=== PATIENT | male | born 1935 | race Caucasian/White ===

== ENCOUNTER → 2016-05-28 | Outpatient (CLI) | payer OTHER, BC ==
[2016-05-28 13:29] LABS: HEMATOCRIT 46.9 % (42-52); MEAN CELL VOLUME 90.7 fL (80-100); MEAN CORPUSCULAR HEMOGLOBIN 31.3 pg (25-34); MEAN CORPUSCULAR HGB CONC 34.5 g/dl (32-36); MEAN PLATELET VOLUME 10.4 fL (7.4-10.4); PLATELET COUNT 218 K/uL (130-400); RED BLOOD COUNT 5.17 M/uL (4.7-6.1)
[2016-05-28 13:54] LABS: BLOOD UREA NITROGEN 18 mg/dl (7-18); BUN/CREATININE RATIO 16.3 (10-20); CALCIUM 9.3 mg/dl (8.5-10.1); CARBON DIOXIDE 25 mmol/L (21-32); CHLORIDE 105 mmol/L (98-107); GLUCOSE 121 mg/dl (70-99); POTASSIUM 4.1 mmol/L (3.5-5.1); SODIUM 141 mmol/L (136-145)
[2016-05-28 14:06] LABS: ALB/GLOB RATIO 1.2 (0.9-2); ALKALINE PHOSPHATASE 48 U/L (45-117); ALT/SGPT 37 U/L (12-78); AST/SGOT 22 U/L (15-37); CHOLESTEROL 184 mg/dl (0-200); CHOLESTEROL/HDL RATIO 3.3; HDL CHOLESTEROL 55 mg/dl; LDL CHOLESTEROL CALCULATED 109 mg/dl; TRIGLYCERIDES 100 mg/dl (0-150); VERY LOW DENSITY LIPOPROT CALC 20 mg/dl
[2016-05-28 14:22] LABS: ESTIMATED AVERAGE GLUCOSE 140 mg/dl; HA1C FLAG Normal (Normal)
== END | disposition home or self-care (01) ==
LOC: C.LABBC 09:27
PROVIDERS: ATTEND Family Medicine
DX: E11.9 Type 2 diabetes mellitus without complications (principal); I10 Essential (primary) hypertension

== ENCOUNTER → 2016-11-25 | Outpatient (CLI) | payer OTHER, BC ==
[2016-11-25 10:51] LABS: BASO % 0.8 %; BASO ABS # 0.07 K/uL (0-0.2); COMPLETE YES; EOS % 5.9 %; IG% 0.4 %; MEAN CELL VOLUME 90.5 fL (80-100); MEAN CORPUSCULAR HGB CONC 34.2 g/dl (32-36); MEAN PLATELET VOLUME 10.3 fL (7.4-10.4); MONO % 9.6 %; NEUT % 45.3 %; PLATELET COUNT 212 K/uL (130-400); RED BLOOD COUNT 4.97 M/uL (4.7-6.1); WHITE BLOOD COUNT 8.43 K/uL (4.8-10.8)
[2016-11-25 11:16] LABS: ALB/GLOB RATIO 1.1 (0.9-2); ALKALINE PHOSPHATASE 44 U/L (45-117); ALT/SGPT 43 U/L (12-78); AST/SGOT 26 U/L (15-37); BLOOD UREA NITROGEN 16 mg/dl (7-18); BUN/CREATININE RATIO 17.3 (10-20); CALCIUM 8.7 mg/dl (8.5-10.1); CARBON DIOXIDE 27 mmol/L (21-32); CHLORIDE 107 mmol/L (98-107); CHOLESTEROL 161 mg/dl (0-200); CHOLESTEROL/HDL RATIO 3.2; CREATININE 0.92 mg/dl (0.60-1.40); GLUCOSE 124 mg/dl (70-99); HDL CHOLESTEROL 50 mg/dl; POTASSIUM 4.1 mmol/L (3.5-5.1); SODIUM 140 mmol/L (136-145)
[2016-11-25 11:21] LABS: LDL CHOLESTEROL CALCULATED 92 mg/dl; PHOSPHORUS 2.1 mg/dl (2.5-4.9); TRIGLYCERIDES 96 mg/dl (0-150); URIC ACID 5.1 mg/dl (2.6-7.2); VERY LOW DENSITY LIPOPROT CALC 19 mg/dl
[2016-11-25 11:52] LABS: ESTIMATED AVERAGE GLUCOSE 137 mg/dl; HA1C FLAG Normal (Normal)
[2016-11-26 12:31] LABS: C-REACTIVE PROT HIGHSEN 3.2 MG/L
--- NOTE | 2016-12-03 09:17 | CODING QUERY MEDICAL NECESSITY ---
CQSUPPORTING DIAGNOSIS NEEDED A supporting diagnosis is required for the test/procedure performed on this patient in order for us to be reimbursed by the patient's insurance. Please provide a supporting diagnosis for the following test/procedure listed below next to the test name along with your signature. *If there is no additional diagnosis for this patient that would support the following test/procedure please document that below next to the test/procedure. Test(s)/Procedure(s) that require a supporting diagnosis: DOS 11/25/16 C-REACTIVE PROTEIN HIGH SENSITIVITY TEST THYROID TEST Provider Signature: Date: Thank you Breana Nunez Health Information Management Once completed, please kindly fax back to [phone] For questions please call [phone]
== END | disposition home or self-care (01) ==
LOC: C.LABBC 08:24
PROVIDERS: ATTEND Family Medicine
DX: R73.09 Other abnormal glucose (principal); E55.9 Vitamin D deficiency, unspecified; D51.9 Vitamin B12 deficiency anemia, unspecified; R53.83 Other fatigue

== ENCOUNTER → 2017-01-07 | Outpatient (CLI) | payer OTHER, BC ==
[2017-01-07 10:59] LABS: HEMATOCRIT 46.8 % (42-52); MEAN CELL VOLUME 90.9 fL (80-100); MEAN CORPUSCULAR HEMOGLOBIN 32.2 pg (25-34); MEAN CORPUSCULAR HGB CONC 35.5 g/dl (32-36); MEAN PLATELET VOLUME 10.7 fL (7.4-10.4); PLATELET COUNT 237 K/uL (130-400); RED BLOOD COUNT 5.15 M/uL (4.7-6.1); WHITE BLOOD COUNT 11.02 K/uL (4.8-10.8)
[2017-01-07 11:33] LABS: BLOOD UREA NITROGEN 20 mg/dl (7-18); BUN/CREATININE RATIO 19.8 (10-20); CALCIUM 9.2 mg/dl (8.5-10.1); CARBON DIOXIDE 27 mmol/L (21-32); CHLORIDE 105 mmol/L (98-107); GLUCOSE 137 mg/dl (70-99); POTASSIUM 4.2 mmol/L (3.5-5.1); SODIUM 139 mmol/L (136-145)
== END | disposition home or self-care (01) ==
LOC: C.LABBC 07:44
PROVIDERS: ATTEND Urology
DX: R97.20 Elevated prostate specific antigen [PSA] (principal); N52.01 Erectile dysfunction due to arterial insufficiency

== ENCOUNTER → 2017-08-03 | Outpatient (CLI) | payer OTHER, BC ==
[2017-08-03 10:42] LABS: BASO % 0.9 %; BASO ABS # 0.08 K/uL (0-0.2); EOS % 4.9 %; EOS ABS # 0.46 K/uL (0-0.5); HEMOGLOBIN 15.6 g/dL (14.0-18.0); IG# 0.07 K/uL (0.00-0.02); LYMPH % 31.4 %; LYMPH ABS # 2.93 K/uL (1.2-3.4); MEAN CELL VOLUME 89.8 fL (80-100); MEAN CORPUSCULAR HEMOGLOBIN 31.8 pg (25-34); MEAN CORPUSCULAR HGB CONC 35.5 g/dl (32-36); MEAN PLATELET VOLUME 10.2 fL (7.4-10.4); MONO % 9.2 %; MONO ABS # 0.86 K/uL (0.11-0.59); NEUT % 52.9 %; NEUT ABS # 4.94 K/uL (1.4-6.5); PLATELET COUNT 231 K/uL (130-400); RED CELL DISTRIBUTION WIDTH CV 14.1 % (11.5-14.5); RED CELL DISTRIBUTION WIDTH SD 46.1 fL (36.4-46.3); WHITE BLOOD COUNT 9.34 K/uL (4.8-10.8)
[2017-08-03 11:41] LABS: HEMOGLOBIN A1C 6.6 % (4.5-5.6)
[2017-08-03 14:02] LABS: ALBUMIN 3.8 gm/dl (3.4-5.0); ALT/SGPT 36 U/L (12-78); AST/SGOT 26 U/L (15-37); BLOOD UREA NITROGEN 20 mg/dl (7-18); CALCIUM 9.1 mg/dl (8.5-10.1); CARBON DIOXIDE 25 mmol/L (21-32); CHOLESTEROL 157 mg/dl (0-200); GLUCOSE 126 mg/dl (70-99); POTASSIUM 4.4 mmol/L (3.5-5.1); SODIUM 135 mmol/L (136-145); URIC ACID 5.2 mg/dl (2.6-7.2)
[2017-08-03 14:11] LABS: ALKALINE PHOSPHATASE 48 U/L (45-117); LDL CHOLESTEROL CALCULATED 93 mg/dl; TOTAL PROTEIN 7.8 gm/dl (6.4-8.2); TRANSFERRIN 217 mg/dl (200-360)
== END | disposition home or self-care (01) ==
LOC: C.LABBC 09:06
PROVIDERS: ATTEND Family Medicine
DX: R73.09 Other abnormal glucose (principal); E55.9 Vitamin D deficiency, unspecified; D51.9 Vitamin B12 deficiency anemia, unspecified; E78.9 Disorder of lipoprotein metabolism, unspecified; R53.83 Other fatigue

== ENCOUNTER 2022-03-03 08:38 | Inpatient (IN) ==
[2022-03-03] MEDS ORDERED: ONDANSETRON INJ 2 MG/ML 2 ML VIAL IV STA ×2 (09:08→14:40)
[2022-03-03] MEDS ORDERED: ACETAMINOPHEN 1,000 MG/100 ML VIAL IV STA (09:08)
[2022-03-03] MEDS ORDERED: FAMOTIDINE 20MG IV PUSH 20 MG/5 ML SYR IV STA (09:08)
--- NOTE | 2022-03-03 09:08 | Emergency Department Note ---
Impression & Plan Precordial chest pain, Epigastric abdominal pain, Hiatal hernia, Gastric outlet obstruction ED Provider Note NAME: SCOTT TAVAREZ AGE: 86 SEX: M : 1935 ARRIVES VIA: Walk-In INFORMANT: [Patient] ED PROVIDER(S): [Nate Glover MD] CHIEF COMPLAINT: Chest pain HISTORY OF PRESENT ILLNESS: The patient is an 86-year-old male who presents with chest, epigastric abdominal and left scapular discomfort that began around 7 PM last night after eating a bowl of cereal. The pain was a 10/10 but now is a 5. No nausea or vomiting. He felt a little bit short of breath when he was getting dressed this morning. The pain has been present now for 14 hours. The patient had similar pain 2 days ago after eating lunch but it resolved spontaneously. The patient has no history of heart disease. He still has his gallbladder but has never been told he has gallstones. There has been no fever, no chills. No respiratory complaints. REVIEW OF SYSTEMS: See HPI for pertinent positives and negatives. A total of ten systems were reviewed and were otherwise negative. PMHx/PSHx: See Below SOCIAL HISTORY: See Below. PHYSICAL EXAM: GENERAL: Patient is in no acute distress. HEENT: No acute trauma, normocephalic atraumatic, mucous membranes moist, no nasal congestion, no scleral icterus. NECK: No stridor, no adenopathy, no meningismus, trachea is midline. LUNGS: Clear to auscultation bilaterally, no wheeze, no rhonchi, breath sounds equal. Chest: Nontender chest wall. HEART: No obvious murmurs, rhythm seems regular with an occasional extra beat. Normal rate. ABDOMEN: Soft, mildly tender in the epigastrium and right upper quadrant, no peritonitis. EXTREMITIES: No cyanosis or edema, full range of motion of all the joints without pain or difficulty, no signs for acute trauma. NEUROLOGIC: Oriented x 3, no acute motor or sensory deficits, no focal weakness. SKIN: No rash, no jaundice, no diaphoresis. DIFFERENTIAL DIAGNOSIS: Cardiac ischemia, aortic dissection, pulmonary embolism, pneumothorax, pneumonia, pericarditis, myocarditis, esophageal rupture, GERD, cholecystitis, pancreatitis, musculoskeletal, as well as other pathologies. EMERGENCY DEPARTMENT COURSE/PROCEDURES: ECG: Indication was chest pain. The ECG shows a sinus rhythm with PACs. The rate is 89. There is a right bundle branch block. There is no ST elevation. The QTc is 491. Continuous Cardiac Monitoring: An order was placed for continuous cardiac monitoring. The monitor shows a rate of 99 with sinus rhythm with PACs. Observation Note: The patient has a family history of prostate cancer. Patient was first seen at 0900 and observation began at 0900 and was necessary in order to rule out cardiac ischemia. Upon reevaluation, around 4 hours of observation revealed that the patient should be admitted for further work-up and testing. Admitted 03/03/2022, 1305. MEDICAL DECISION MAKING: There is a mild leukocytosis, this could be consistent with infection or just his pain. There is a normal hemoglobin and platelet count. No coagulopathy. No renal failure. No significant electrolyte abnormality in need of emergent correction. ECG shows a sinus rhythm with PACs. There was a right bundle branch block. No ST elevation. Cardiac enzyme testing x2 does not suggest acute cardiac injury. No evidence for pancreatitis. COVID test was negative. Chest x-ray does not show pneumonia or mediastinal widening. A hiatal hernia was seen. Abdominal and pelvis CT shows esophagitis with a hiatal hernia and a potential gastric outlet obstruction. Gallstones were seen. Gallbladder ultrasound shows gallstones, no acute cholecystitis or biliary obstruction. The patient received IV Tylenol, IV ceftriaxone, IV Pepcid and IV Zofran. He seems comfortable. I did speak with GI, Dr. Juarez. The patient requires hospitalization and an e ventual endoscopy. I did speak with the patient and case management, the on-call hospitalist was co nsulted. I do think the findings around the hiatal hernia and esophagus explain his presentation. Past Med/Surg History Medical History History of kidney stones Surgical History (Updated 03/03/22 @ 13:12 by Funmilayo Rodriguez PA-C) History of appendectomy Hx of tonsillectomy Family History Father Prostate cancer Denies family history of Colorectal cancer Social History Smoking Status: Never smoker Feels Safe at Home: Yes Allergies Allergies Allergy/AdvReac Type Severity Reaction Status Date / Time [id number] Allergy Unknown Uncoded 05/18/05 22:42 Home Meds Home Medications Medication Instructions Recorded Confirmed Fish Oil 2,000 Mg 2,000 mg PO BID 03/03/22 03/03/22 ascorbic acid (vitamin C) 1,000 mg 1 g PO DAILY 03/03/22 03/03/22 tablet (Vitamin C) aspirin 81 mg tablet,delayed 81 mg PO DAILY 03/03/22 03/03/22 release cholecalciferol (vitamin D3) 25 0 mcg PO DAILY 03/03/22 03/03/22 mcg (1,000 unit) tablet (Vitamin D3) vitamin B complex 1 tab PO DAILY 03/03/22 03/03/22 zinc 50 mg capsule 50 mg PO DAILY 03/03/22 03/03/22 Results & Data (ED) Vital Signs Vital Signs - 24 hr 03/03/22 08:41 03/03/22 08:55 03/03/22 12:38 Temperature 36.9 C Temperature Source Temporal Artery Scan Pulse Rate 99 H Pulse Rate [Finger] 81 Respiratory Rate 20 18 Respiratory Effort / Characteristics Non-Labored Spontaneous Respiratory Depth Normal Respiratory Pattern Regular Blood Pressure 134/85 Blood Pressure [Right Arm] 152/111 H Blood Pressure Mean 101 Blood Pressure Mean [Right Arm] 124 Blood Pressure Position Sitting Blood Pressure Position [Right Arm] Semi-fowlers Pulse Oximetry 96 93 94 Oxygen Delivery Method Room Air Room Air Room Air Sepsis Recent Fever Within 48 Hours No Sepsis New/Unexplained Change in Mental Status N/A Sepsis Action Taken by Nursing No Action Required 03/03/22 14:00 Temperature Temperature Source Pulse Rate Pulse Rate [Finger] 81 Respiratory Rate 16 Respiratory Effort / Characteristics Respiratory Depth Respiratory Pattern Blood Pressure Blood Pressure [Right Arm] 156/94 H Blood Pressure Mean Blood Pressure Mean [Right Arm] 114 Blood Pressure Position Blood Pressure Position [Right Arm] Pulse Oximetry 93 Oxygen Delivery Method Room Air Sepsis Recent Fever Within 48 Hours Sepsis New/Unexplained Change in Mental Status Sepsis Action Taken by Long Term Medications Current Medication List: was personally reviewed by me Laboratory Data Attestation: I reviewed the patient's lab results. Result diagrams: 03/03/22 09:10 03/03/22 09:10 Lab Results 03/03/22 03/03/22 03/03/22 Range/Units 09:10 09:10 09:10 WBC 11.76 H (4.8-10.8) K/ul RBC 4.78 (4.63-6.08) M/uL Hgb 14.8 (14.0-18.0) g/dl Hct 43.5 (40.1-51.0) % MCV 91.0 (80.0-100.0) fL MCH 31.0 (25.0-34.0) pg MCHC 34.0 (32.0-36.0) g/dL RDW Std Deviation 47.8 H (36.4-46.3) fL RDW Coeff of Hunter 14.2 (11.5-14.5) % Plt Count 264 (130-400) K/uL MPV 9.8 (9.4-12.4) fL Immature Gran % (Auto) 0.4 % Neut % (Auto) 70.2 % Lymph % (Auto) 19.1 % Crockett % (Auto) 7.7 % Eos % (Auto) 2.0 % Baso % (Auto) 0.6 % Neut # (Auto) 8.26 H (1.4-6.5) K/uL Lymph # (Auto) 2.25 (1.2-3.4) K/uL Crockett # (Auto) 0.90 H (0.24-0.82) K/uL Eos # (Auto) 0.23 (0-0.50) K/uL Baso # (Auto) 0.07 (0-0.2) K/uL Immature Gran # (Auto) 0.05 H (0.00-0.02) K/uL PT 10.9 (9.0-12.0) Seconds INR 1.0 (0.9-1.1) APTT 25.7 (21.0-31.0) Seconds PTT Ratio 0.9 Sodium 139 (136-145) mmol/L Potassium 3.8 (3.5-5.1) mmol/L Chloride 104 (98-107) mmol/L Carbon Dioxide 25 (21-32) mmol/L Anion Gap 10 (3-11) BUN 20 (6-23) mg/dl Creatinine 0.97 (0.6-1.4) mg/dl Est Cr Clr Drug Dosing 61.5 ml/min Est GFR ( Amer) 82.7 ml/min Est GFR (Non-Af Amer) 71.4 ml/min BUN/Creatinine Ratio 20.6 H (10-20) Glucose 150 H (70-99(Fasting)) mg/dl Calcium 9.5 (8.5-10.1) mg/dl Magnesium 2.0 (1.7-2.4) mg/dl Total Bilirubin 0.9 (0.2-1.0) mg/dl AST 16 (13-39) U/L ALT 13 (7-52) U/L Alkaline Phosphatase 57 (34-104) U/L Troponin I High Sens 20.5 H (0-20) pg/ml Total Protein 7.6 (6.0-8.3) gm/dl Albumin 4.0 (3.4-5.0) gm/dl Globulin 3.6 (2.5-4.0) gm/dl Albumin/Globulin Ratio 1.1 (0.9-2) Lipase 18 (11-82) U/L SARS-CoV-2, RNA, NAAT (NEGATIVE) 03/03/22 03/03/22 Range/Units 09:10 11:42 WBC (4.8-10.8) K/ul RBC (4.63-6.08) M/uL Hgb (14.0-18.0) g/dl Hct (40.1-51.0) % MCV (80.0-100.0) fL MCH (25.0-34.0) pg MCHC (32.0-36.0) g/dL RDW Std Deviation (36.4-46.3) fL RDW Coeff of Hunter (11.5-14.5) % Plt Count (130-400) K/uL MPV (9.4-12.4) fL Immature Gran % (Auto) % Neut % (Auto) % Lymph % (Auto) % Crockett % (Auto) % Eos % (Auto) % Baso % (Auto) % Neut # (Auto) (1.4-6.5) K/uL Lymph # (Auto) (1.2-3.4) K/uL Crockett # (Auto) (0.24-0.82) K/uL Eos # (Auto) (0-0.50) K/uL Baso # (Auto) (0-0.2) K/uL Immature Gran # (Auto) (0.00-0.02) K/uL PT (9.0-12.0) Seconds INR (0.9-1.1) APTT (21.0-31.0) Seconds PTT Ratio Sodium (136-145) mmol/L Potassium (3.5-5.1) mmol/L Chloride (98-107) mmol/L Carbon Dioxide (21-32) mmol/L Anion Gap (3-11) BUN (6-23) mg/dl Creatinine (0.6-1.4) mg/dl Est Cr Clr Drug Dosing ml/min Est GFR ( Amer) ml/min Est GFR (Non-Af Amer) ml/min BUN/Creatinine Ratio (10-20) Glucose (70-99(Fasting)) mg/dl Calcium (8.5-10.1) mg/dl Magnesium (1.7-2.4) mg/dl Total Bilirubin (0.2-1.0) mg/dl AST (13-39) U/L ALT (7-52) U/L Alkaline Phosphatase (34-104) U/L Troponin I High Sens 20.3 H (0-20) pg/ml Total Protein (6.0-8.3) gm/dl Albumin (3.4-5.0) gm/dl Globulin (2.5-4.0) gm/dl Albumin/Globulin Ratio (0.9-2) Lipase (11-82) U/L SARS-CoV-2, RNA, NAAT NEGATIVE (NEGATIVE) Administered Medications Discontinued Medications Famotidine (Pepcid 20mg Iv Push) 20 mg in 5 mls @ 2.5 mls/min IV NOW STA Stop: 03/03/22 09:09 Last Admin: 03/03/22 09:33 Dose: 2.5 mls/min Documented By: ALEJANDRO Acetaminophen (Ofirmev) 1,000 mg in 100 mls @ 400 mls/hr IV NOW STA Stop: 03/03/22 09:22 Last Infusion: 03/03/22 10:17 Dose: 0 mls/hr Documented By: Admin: 03/03/22 09:33 Dose: 400 mls/hr Documented By: ALEJANDRO Ceftriaxone Sodium (Rocephin) 2,000 mg in 70 mls @ 140 mls/hr IV NOW STA Stop: 03/03/22 12:51 Last Infusion: 03/03/22 13:20 Dose: 0 mls/hr Documented By: Admin: 03/03/22 12:50 Dose: 140 mls/hr Documented By: ALEJANDRO Ioversol (Optiray 350 100ml) 90 ml IV ONCE ONE Stop: 03/03/22 10:40 Last Admin: 03/03/22 10:39 Dose: 90 ml Documented By: ELSIE Ondansetron HCl (Ondansetron Inj 2 Mg/Ml 2 Ml Vial) 4 mg IV NOW STA Stop: 03/03/22 09:09 Last Admin: 03/03/22 09:33 Dose: 4 mg Documented By: ALEJANDRO Ondansetron HCl (Ondansetron Inj 2 Mg/Ml 2 Ml Vial) 4 mg IV NOW STA Stop: 03/03/22 14:41 Last Admin: 03/03/22 14:44 Dose: 4 mg Documented By: GURPREET Imaging Data Radiologist's Impression: Chest X-Ray 03/03/22 08:52 XR chest 1V portable HISTORY: 86 years-old Male Chest Pain . Acute chest pain COMPARISON: None TECHNIQUE: AP view of the chest FINDINGS: Cardiomediastinal and hilar silhouettes are within normal limits. Atherosclerosis of the aorta. Mild interstitial coarsening is likely chronic. No pneumothorax, pleural effusion, airspace consolidation or overt pulmonary edema. Mild right hemidiaphragmatic elevation. Hiatal hernia with intrathoracic stomach. Degenerative changes of the shoulders and spine. IMPRESSION: 1. No acute processes of the chest. 2. Hiatal hernia. ACT 112: Negative or not required by law. The above report was generated using voice recognition software. It may contain grammatical, syntax or spelling errors. Electronically signed by: Mu Cartwright M.D. 03/03/2022 9:15 AM Gallbladder Ultrasound 03/03/22 09:05 ULTRASOUND RIGHT UPPER QUADRANT ABDOMEN CLINICAL HISTORY: Right upper quadrant abdominal pain.. COMPARISON STUDY: Abdominal CT dated 03/03/2022. TECHNIQUE: Real-time, grayscale, and color flow sonography of the right upper quadrant of the abdomen was performed. Images are reviewed in the transverse and longitudinal planes. FINDINGS: Liver: The liver is normal in size and demonstrates heterogeneously increased echotexture indicating steatosis. There is no intrahepatic biliary ductal dilatation. The main portal vein is patent. Gallbladder: There are numerous shadowing calcified gallstones. There is no g allbladder wall thickening or pericholecystic fluid. A sonographic Sanders's sign is reportedly absent. The common bile duct measures up to 0.7 cm in diameter. Pancreas: Visualized portions of the pancreatic head are normal in appearance. The majority of the pancreas is not visualized due to overlying bowel gas. Right kidney: Survey images of the right kidney demonstrate normal size and echotexture. There is no hydronephrosis. A 1 cm nonobstructing calculus is seen in the right upper pole. Ascites: None. IMPRESSION: 1. Cholelithiasis without sonographic evidence of acute cholecystitis. 2. Hepatic steatosis. 3. Right-sided nephrolithiasis. ACT 112: Negative or not required by law. Electronically signed by: Nate Resendiz M.D. 03/03/2022 11:50 AM Abdomen/Pelvis CT 03/03/22 09:[address] WITH IV CONTRAST CT DOSE: 526.02 mGy.cm HISTORY: Acute right upper quadrant abdominal pain epig pain TECHNIQUE: Multiaxial CT images of the abdomen and pelvis were performed following the IV administration of 90 cc of Optiray, A dose lowering technique was utilized adhering to the principles of ALARA. COMPARISON STUDY: Abdominal ultrasound 07/25/2007 FINDINGS: Mild subsegmental atelectasis/scarring of the lung bases. No pneumatosis or pneumoperitoneum. The spleen, pancreas and adrenal glands are unremarkable. The liver is within normal limits. Patency of the hepatic and portal veins. Cholelithiasis without CT evidence of acute cholecystitis. No biliary ductal dilation. Exophytic 1.6 cm cyst of the superior pole right kidney. 9 mm nonobstructing calculus of the superior pole right kidney. There are greater than 5 nonobstructing calculi of the left kidney measuring up to 7 mm. 10 mm hypodense focus suggestive of a cyst within the superior pole left kidney. There is a 1.2 x 0.8 x 1.8 cm calculus of the proximal left ureter at the level of L3 resulting in mild hydroureter without hydronephrosis. Unremarkable urinary bladder. Prostamegaly. Atherosclerosis of the aorta without aneurysm. There is no lymphadenopathy identified. Wall thickening of the distal esophagus with adjacent stranding and trace free fluid. There is a moderate sized paraesophageal hernia. There is focal narrowing of the gastric body at the level of the diaphragmatic hiatus. The stomach proximal to the site of narrowing is mildly dilated, air and fluid-filled. Duodenal diverticulum. No bowel obstruction or bowel wall thickening. Colonic diverticulosis. Mild to moderate colonic fecal retention. Appendectomy. Unremarkable soft tissues. Degenerative changes of the spine, pelvis and hips. IMPRESSION: 1. Moderate-sized paraesophageal hernia with narrowing of the stomach at the diaphragmatic hiatus. Mild distention of the stomach proximal to the site of narrowing may represent a degree of gastric outlet obstruction. 2. 1.8 cm calculus of the proximal left ureter without hydronephrosis. 3. Nonobstructing bilateral renal calculi. 4. Cholelithiasis. 5. Additional findings as above. ACT 112: Negative or not required by law. The above report was generated using voice recognition software. It may contain grammatical, syntax or spelling errors. Electronically signed by: Mu Cartwright M.D. 03/03/2022 11:[address] 03/03/22 13:08 CT OF THE CHEST WITHOUT IV CONTRAST CLINICAL HISTORY: chest/epigastric pain with paraesophageal hernia COMPARISON STUDY: CT of the abdomen and pelvis and chest radiograph performed earlier today. CT DOSE: 421.62 mGycm TECHNIQUE: Axial images of the chest were obtained without IV contrast. Images were reviewed in the axial, sagittal, and coronal planes. IV contrast was not administered for this examination. Automated exposure control was utilized for the study. A dose lowering technique was utilized adhering to the principles of ALARA. FINDINGS: No enlarged axillary, mediastinal or hilar lymph nodes are present. There is moderate coronary artery calcification. Size of the heart is at the upper limits of normal. There is no pericardial effusion. Ascending aorta is dilated, measuring 4.6 cm in caliber. Note is made of a complex hiatal hernia. Specifically, the GE junction is below the diaphragm. The fundus and body of the stomach are below the diaphragm and moderately distended with air-fluid level. The gastric antrum is mildly distended and above the diaphragm. The stomach is inverted. No significant twisting is noted. Distal stomach is decompressed. There is trace fluid and stranding within the hernia sac. A trace left pleural effusion is present. There is no pneumomediastinum. No pneumothorax is present. Subpleural reticulation within lungs is noted without honeycombing. There is no consolidation to suggest pneumonia. Gallstones within the gallbladder are prese nt. IMPRESSION: 1. Complex hiatal hernia which likely results in a partial gastric outlet obstruction. GE junction below the diaphragm with fluid-filled distended gastric fundus and body below the diaphragm. Transition point at the diaphragmatic hiatus which likely results in the gastric outlet obstruction. Surgical consultation is recommended. 2. Dilated ascending aorta measuring 4.6 cm in caliber. 3. Evidence for interstitial lung disease, as described above. 4. Trace left pleural effusion. 5. Cholelithiasis. ACT 112: Negative or not required by law. Electronically signed by: Austin Carmichael M.D. 03/03/2022 2:03 PM Discharge Plan Visit Data Chief Complaint: Chest Pain Stated Complaint: CHEST PAIN, SHOULDER PAIN ED Provider: Nate Glover Discharge Problem: Precordial chest pain, Epigastric abdominal pain, Hiatal hernia, Gastric outlet obstruction Patient Disposition: Admitted As Inpatient Condition: Fair Forms Stand Alone Forms: [facility] Prescriptions Prescriptions: No Action ascorbic acid (vitamin C) [Vitamin C] 1,000 mg Tablet 1 g PO DAILY aspirin [Aspir-Low] 81 mg Tablet,Delayed Release (Dr/Ec) 81 mg PO DAILY vitamin B complex Tablet 1 tab PO DAILY zinc 50 mg Capsule 50 mg PO DAILY cholecalciferol (vitamin D3) [Vitamin D3] 25 mcg (1,000 unit) Tablet 0 mcg PO DAILY Fish Oil 2,000 Mg 2,000 mg PO BID Referrals Referrals: Michael Daley MD [Primary Care Provider] -
--- NOTE | 2022-03-03 09:16 | XRay Report ---
XR chest 1V portable HISTORY: 86 years-old Male Chest Pain . Acute chest pain COMPARISON: None TECHNIQUE: AP view of the chest FINDINGS: Cardiomediastinal and hilar silhouettes are within normal limits. Atherosclerosis of the aorta. Mild interstitial coarsening is likely chronic. No pneumothorax, pleural effusion, airspace consolidation or overt pulmonary edema. Mild right hemidiaphragmatic elevation. Hiatal hernia with intrathoracic st omach. Degenerative changes of the shoulders and spine. IMPRESSION: 1. No acute processes of the chest. 2. Hiatal hernia. ACT 112: Negative or not required by law. The above report was generated using voice recognition software. It may contain grammatical, syntax o r spelling errors. Electronically signed by: Mu Cartwright M.D. 03/03/2022 9:15 AM
[2022-03-03 09:25] LABS: Basophils # (auto) 0.07 K/uL (0-0.2); Basophils % (auto) 0.6 %; Eosinophils # (auto) 0.23 K/uL (0-0.50); Hematocrit (blood only) 43.5 % (40.1-51.0); Hemoglobin 14.8 g/dl (14.0-18.0); Immature Granulocytes # (auto) 0.05 K/uL (0.00-0.02); Immature Granulocytes % (auto) 0.4 %; Lymphocytes # (auto) 2.25 K/uL (1.2-3.4); Lymphocytes % (auto) 19.1 %; Mean Platelet Volume 9.8 fL (9.4-12.4); Monocytes % (auto) 7.7 %; Neutrophils # (auto) 8.26 K/uL (1.4-6.5); Neutrophils % (auto) 70.2 %; Platelet Count 264 K/uL (130-400); RDW Coefficient of Variation 14.2 % (11.5-14.5); RDW Standard Deviation 47.8 fL (36.4-46.3); Red Blood Count 4.78 M/uL (4.63-6.08); White Blood Count 11.76 K/ul (4.8-10.8)
[2022-03-03 09:39] LABS: Partial Thromboplastin Ratio 0.9; Partial Thromboplastin Time 25.7 Seconds (21.0-31.0); Prothrombin Time 10.9 Seconds (9.0-12.0)
[2022-03-03 09:58] LABS: Albumin Globulin Ratio 1.1 (0.9-2); BUN Creatinine Ratio 20.6 (10-20); Bilirubin,Total 0.9 mg/dl (0.2-1.0); Calcium 9.5 mg/dl (8.5-10.1); Creatinine Clr Calc Pharmacy 61.5 ml/min; Est GFR (African American) 82.7 ml/min; Est GFR (Non-African American) 71.4 ml/min; Globulin 3.6 gm/dl (2.5-4.0); Potassium 3.8 mmol/L (3.5-5.1); Total Protein 7.6 gm/dl (6.0-8.3)
[2022-03-03 09:59] LABS: Troponin I High Sensitivity 20.5 pg/ml (0-20)
[2022-03-03] MEDS ORDERED: OPTIRAY 350 100ml IV ONE (10:39)
--- NOTE | 2022-03-03 11:08 | CT Scan Report ---
ABDOMEN AND PELVIS CT WITH IV CONTRAST CT DOSE: 526.02 mGy.cm HISTORY: Acute right upper quadrant abdominal pain epig pain TECHNIQUE: Multiaxial CT images of the abdomen and pelvis were performed following the IV administrat ion of 90 cc of Optiray, A dose lowering technique was utilized adhering to the principles of ALARA. COMPARISON STUDY: Abdominal ultrasound 07/25/2007 FINDINGS: Mild subsegmental atelectasis/scarring of the lung bases. No pneumatosis or pneumoperitoneu m. The spleen, pancreas and adrenal glands are unremarkable. The liver is within normal limits. Paten cy of the hepatic and portal veins. Cholelithiasis without CT evidence of acute cholecystitis. No bang iary ductal dilation. Exophytic 1.6 cm cyst of the superior pole right kidney. 9 mm nonobstructing calculus of the superior pole right kidney. There are greater than 5 nonobstructing calculi of the left kidney measuring up t o 7 mm. 10 mm hypodense focus suggestive of a cyst within the superior pole left kidney. There is a 1 .2 x 0.8 x 1.8 cm calculus of the proximal left ureter at the level of L3 resulting in mild hydrouret er without hydronephrosis. Unremarkable urinary bladder. Prostamegaly. Atherosclerosis of the aorta w ithout aneurysm. There is no lymphadenopathy identified. Wall thickening of the distal esophagus with adjacent stranding and trace free fluid. There is a mode rate sized paraesophageal hernia. There is focal narrowing of the gastric body at the level of the di aphragmatic hiatus. The stomach proximal to the site of narrowing is mildly dilated, air and fluid-fi lled. Duodenal diverticulum. No bowel obstruction or bowel wall thickening. Colonic diverticulosis. M ild to moderate colonic fecal retention. Appendectomy. Unremarkable soft tissues. Degenerative change s of the spine, pelvis and hips. IMPRESSION: 1. Moderate-sized paraesophageal hernia with narrowing of the stomach at the diaphragmatic hiatus. Mi ld distention of the stomach proximal to the site of narrowing may represent a degree of gastric outl et obstruction. 2. 1.8 cm calculus of the proximal left ureter without hydronephrosis. 3. Nonobstructing bilateral renal calculi. 4. Cholelithiasis. 5. Additional findings as above. ACT 112: Negative or not required by law. The above report was generated using voice recognition software. It may contain grammatical, syntax o r spelling errors. Electronically signed by: Mu Cartwright M.D. 03/03/2022 11:07 AM
--- NOTE | 2022-03-03 11:52 | Ultrasound Report ---
ULTRASOUND RIGHT UPPER QUADRANT ABDOMEN CLINICAL HISTORY: Right upper quadrant abdominal pain.. COMPARISON STUDY: Abdominal CT dated 03/03/2022. TECHNIQUE: Real-time, grayscale, and color flow sonography of the right upper quadrant of the abdomen was performed. Images are reviewed in the transverse and longitudinal planes. FINDINGS: Liver: The liver is normal in size and demonstrates heterogeneously increased echotexture indicating steatosis. There is no intrahepatic biliary ductal dilatation. The main portal vein is patent. Gallbladder: There are numerous shadowing calcified gallstones. There is no gallbladder wall thickeni ng or pericholecystic fluid. A sonographic Sanders's sign is reportedly absent. The common bile duct m easures up to 0.7 cm in diameter. Pancreas: Visualized portions of the pancreatic head are normal in appearance. The majority of the pa ncreas is not visualized due to overlying bowel gas. Right kidney: Survey images of the right kidney demonstrate normal size and echotexture. There is no hydronephrosis. A 1 cm nonobstructing calculus is seen in the right upper pole. Ascites: None. IMPRESSION: 1. Cholelithiasis without sonographic evidence of acute cholecystitis. 2. Hepatic steatosis. 3. Right-sided nephrolithiasis. ACT 112: Negative or not required by law. Electronically signed by: Nate Resendiz M.D. 03/03/2022 11:50 AM
[2022-03-03] MEDS ORDERED: cefTRIAXone SODIUM 2,000 MG/70 ML BAG IV STA (12:22)
--- NOTE | 2022-03-03 12:38 | History & Physical Report ---
Date of Service March 03, 2022 Assessment & Plan (1) Paraesophageal hernia: Plan: - Patient has a moderate paraesophageal hernia with distal esophagitis, gastric outlet obstruction. - N.p.o. for now. Hold home meds for now. - IV Pepcid and Protonix twice daily. - IV Rocephin daily. - GI consulted, appreciate their recommendations. - Currently without nausea/vomiting, IV Zofran prn. (2) Esophagitis: Plan: - As above. Plan - Admit to med/surg. - SCDs, Heparin for VTE ppx. - Full Code. History of Present Illness Chief Complaint: Chest/abdominal/shoulder pain since last evening Primary Care Provider: Michael Daley MD Eran Johansen is a 86 y/o otherwise healthy male who is presenting today for chest/epigastric discomfort since last evening. He was eating a bowl of cereal and shortly after finishing it developed left chest pain and epigastric pain that radiated into his left shoulder. It was rated 8/10 when it started and has been stabbing in nature. He has been trying to walk around, drink water, massage his stomach to alleviate the pain with no success. He has not taken any medications at home to alleviate the pain. He woke up this morning with the pain still present, but now slightly better, rating it a 5 out of 10. He had a similar presentation Wednesday evening after eating, however the pain did eventually go away on its own after few hours so he did not seek attention. His only home medications include a baby aspirin and vitamins. Surgeries include appendectomy in his teens, tonsillectomy and kidney stone surgery 40+ years ago, no recent procedures. Denies any recent antibiotic use or choking/difficulty swallowing any of his pills. This is his first presentation with such symptoms. He does not have a history of GERD, has not had any difficulty swallowing or pain with eating. He has not been nauseous or vomiting. Bowel movements are typically every 2-3 days and normal for him, without blood or pain. He has lost 30 pounds over the last 3 years, reports this was intentional. CXR shows a hiatal hernia, CT A/P further reveals a moderate sized paraesophageal hernia with narrowing of the stomach at the diaphragmatic hiatus, as well as mild distention of the stomach proximal to the site of narrowing which may represent a degree of gastric outlet obstruction. There is wall thickening of the distal esophagus with adjacent stranding and trace free fluid. Spleen, pancreas, adrenal glands, liver are all unremarkable and within normal limits. There is evidence of cholelithiasis without evidence of acute cholecystitis or ductal dilation. He has several nonobstructing kidney stones and a cyst on each kidney, as well as a 1.2 x 0.8 x 1.8 cm calculus in proximal left ureter with mild hydroureter, no hydronephrosis. Gallbladder ultrasound was also obtained, which showed cholelithiasis without acute cholecystitis, as well as hepatic steatosis. Upon presentation to ED, he has been mildly hypertensive at times, otherwise vital signs are within normal limits and stable. Labs largely unremarkable, his WBC is mildly elevated 11.76, electrolytes are all within normal limits, without transaminitis. Lipase of 18. Initial troponin 20.5, repeat 2 hours later is 20.3. Allergies Allergy/AdvReac Type Severity Reaction Status Date / Time [id number] Allergy Unknown Uncoded 05/18/05 22:42 Home Medications Medication Instructions Recorded Confirmed Type Fish Oil 2,000 Mg 2,000 mg PO BID 03/03/22 03/03/22 History ascorbic acid (vitamin C) 1,000 mg 1 g PO DAILY 03/03/22 03/03/22 History tablet (Vitamin C) aspirin 81 mg tablet,delayed 81 mg PO DAILY 03/03/22 03/03/22 History release cholecalciferol (vitamin D3) 25 0 mcg PO DAILY 03/03/22 03/03/22 History mcg (1,000 unit) tablet (Vitamin D3) vitamin B complex 1 tab PO DAILY 03/03/22 03/03/22 History zinc 50 mg capsule 50 mg PO DAILY 03/03/22 03/03/22 History Past Med/Surg History Medical History History of kidney stones Surgical History (Updated 03/03/22 @ 13:12 by Funmilayo Rodriguez PA-C) History of appendectomy Hx of tonsillectomy Family History Father Prostate cancer Denies family history of Colorectal cancer Social History Smoking Status: Never smoker Feels Safe at Home: Yes Review of Systems Review of Systems: Constitutional: No fever/chills, weakness, fatigue, myalgias, anorexia, night sweats Eyes: No diplopia, no worsening or blurred vision ENT: normal hearing, no trouble swallowing Respiratory: No cough, sputum, dyspnea at rest or on exertion Cardiovascular: Chest/epigastric stabbing pain since last evening; no tightness or palpitations Abdomen: Epigastric pain since last night; no nausea, vomiting, diarrhea or constipation : Denies dysuria, hematuria, increased urgency/frequency, urinary retention Musculoskeletal: No joint pain, calf pain, swelling Neurologic: No weakness, numbness/tingling, or balance problems Psychiatric: No anxiety or depression Skin: No rash or itch Physical Exam Physical Exam: General: awake, alert, no apparent distress Head: Normocephalic, atraumatic ENT: PERRL, EOMI, no pharyngeal exudate, mucous membranes moist Chest: Clear to auscultation, on room air, no adventitious breath sounds Cardiac: Regular rate and rhythm, no murmur, no JVD, normal peripheral pulses, good capillary refill Abdominal: TTP at epigastrium; NABS x 4 quadrants, soft and otherwise nontender to palpation, no rebound, guarding or tenderness Extremities: Normal inspection, no peripheral edema or erythema, calfs nontender to palpation Psych: Normal mood and affect Neuro: AAO x 3, strength intact bilaterally and rated 5/5, no motor deficits, speech is clear, no peripheral sensory deficits Skin: no rash or erythema Results & Data Results & Data ([facility]) Vital Signs (Past 12 Hours) Vital Signs Temp Pulse Resp BP Pulse Ox O2 Del Method 03/03/22 08:55 93 Room Air 03/03/22 08:41 36.9 C 99 H 20 134/85 96 Room Air Laboratory Results Abnormal lab results 03/03/22 03/03/22 03/03/22 Range/Units 09:10 09:10 11:42 WBC 11.76 H (4.8-10.8) K/ul RDW Std Deviation 47.8 H (36.4-46.3) fL Neut # (Auto) 8.26 H (1.4-6.5) K/uL Frio # (Auto) 0.90 H (0.24-0.82) K/uL Immature Gran # (Auto) 0.05 H (0.00-0.02) K/uL BUN/Creatinine Ratio 20.6 H (10-20) Glucose 150 H (70-99(Fasting)) mg/dl Troponin I High Sens 20.5 H 20.3 H (0-20) pg/ml Diagnostic Findings Chest X-Ray 03/03/22 08:52 XR chest 1V portable HISTORY: 86 years-old Male Chest Pain . Acute chest pain COMPARISON: None TECHNIQUE: AP view of the chest FINDINGS: Cardiomediastinal and hilar silhouettes are within normal limits. Atherosclerosis of the aorta. Mild interstitial coarsening is likely chronic. No pneumothorax, pleural effusion, airspace consolidation or overt pulmonary edema. Mild right hemidiaphragmatic elevation. Hiatal hernia with intrathoracic stomach. Degenerative changes of the shoulders and spine. IMPRESSION: 1. No acute processes of the chest. 2. Hiatal hernia. ACT 112: Negative or not required by law. The above report was generated using voice recognition software. It may contain grammatical, syntax or spelling errors. Electronically signed by: Mu Cartwright M.D. 03/03/2022 9:15 AM Gallbladder Ultrasound 03/03/22 09:05 ULTRASOUND RIGHT UPPER QUADRANT ABDOMEN CLINICAL HISTORY: Right upper quadrant abdominal pain.. COMPARISON STUDY: Abdominal CT dated 03/03/2022. TECHNIQUE: Real-time, grayscale, and color flow sonography of the right upper quadrant of the abdomen was performed. Images are reviewed in the transverse and longitudinal planes. FINDINGS: Liver: The liver is normal in size and demonstrates heterogeneously increased e chotexture indicating steatosis. There is no intrahepatic biliary ductal dilatation. The main portal vein is patent. Gallbladder: There are numerous shadowing calcified gallstones. There is no gallbladder wall thickening or pericholecystic fluid. A sonographic Sanders's sign is reportedly absent. The common bile duct measures up to 0.7 cm in diameter. Pancreas: Visualized portions of the pancreatic head are normal in appearance. The majority of the pancreas is not visualized due to overlying bowel gas. Right kidney: Survey images of the right kidney demonstrate normal size and echotexture. There is no hydronephrosis. A 1 cm nonobstructing calculus is seen in the right upper pole. Ascites: None. IMPRESSION: 1. Cholelithiasis without sonographic evidence of acute cholecystitis. 2. Hepatic steatosis. 3. Right-sided nephrolithiasis. ACT 112: Negative or not required by law. Electronically signed by: Nate Resendiz M.D. 03/03/2022 11:50 AM Abdomen/Pelvis CT 03/03/22 09:[address] WITH IV CONTRAST CT DOSE: 526.02 mGy.cm HISTORY: Acute right upper quadrant abdominal pain epig pain TECHNIQUE: Multiaxial CT images of the abdomen and pelvis were performed following the IV administration of 90 cc of Optiray, A dose lowering technique was utilized adhering to the principles of ALARA. COMPARISON STUDY: Abdominal ultrasound 07/25/2007 FINDINGS: Mild subsegmental atelectasis/scarring of the lung bases. No pneumatosis or pneumoperitoneum. The spleen, pancreas and adrenal glands are unremarkable. The liver is within normal limits. Patency of the hepatic and portal veins. Cholelithiasis without CT evidence of acute cholecystitis. No biliary ductal dilation. Exophytic 1.6 cm cyst of the superior pole right kidney. 9 mm nonobstructing calculus of the superior pole right kidney. There are greater than 5 nonobstructing calculi of the left kidney measuring up to 7 mm. 10 mm hypodense focus suggestive of a cyst within the superior pole left kidney. There is a 1.2 x 0.8 x 1.8 cm calculus of the proximal left ureter at the level of L3 resulting in mild hydroureter without hydronephrosis. Unremarkable urinary bladder. Prostamegaly. Atherosclerosis of the aorta without aneurysm. There is no lymphadenopathy identified. Wall thickening of the distal esophagus with adjacent stranding and trace free fluid. There is a moderate sized paraesophageal hernia. There is focal narrowing of the gastric body at the level of the diaphragmatic hiatus. The stomach proximal to the site of narrowing is mildly dilated, air and fluid-filled. Duodenal diverticulum. No bowel obstruction or bowel wall thickening. Colonic diverticulosis. Mild to moderate colonic fecal retention. Appendectomy. Unremarkable soft tissues. Degenerative changes of the spine, pelvis and hips. IMPRESSION: 1. Moderate-sized paraesophageal hernia with narrowing of the stomach at the diaphragmatic hiatus. Mild distention of the stomach proximal to the site of narrowing may represent a degree of gastric outlet obstruction. 2. 1.8 cm calculus of the proximal left ureter without hydronephrosis. 3. Nonobstructing bilateral renal calculi. 4. Cholelithiasis. 5. Additional findings as above. ACT 112: Negative or not required by law. The above report was generated using voice recognition software. It may contain grammatical, syntax or spelling errors. Electronically signed by: Mu Cartwright M.D. 03/03/2022 11:07 AM ECG Additional Comments: Sinus rhythm with Premature atrial complexes Right bundle branch block Abnormal ECG When compared with ECG of 20-JAN-2014 12:59, No significant change was found. Code Status & VTE Plan Code Status Full Code. Supervising Physician Co-Signing Physician Notes Patient was seen and examined independently I discussed the case with Funmilayo HARDING I reviewed pertinent past medical social family history and also the plan of care and agree with the plan of care. Patient had been an unremarkable good state of health he just began having issues over the last few days with swallowing and discomfort in his chest images show a large paraesophageal hernia with possible gastric outlet issues patient states he can tolerate liquids but cannot tolerate solids Reported emergency department physician spoke with GI on-call and recommended bringing the patient in for consideration of endoscopy. Patient is pending a CT scan of his chest Examination is fairly unrevealing cardiac exam is regular with a systolic murmur lungs are clear abdomen is benign Supportive care with IV fluid for hydration Protonix to treat any ascitic esophagitis and GI consultation Any exceptions will be noted below PG Care Time/CCT Total # of Minutes Spent Total Time Spent with Patient: Total time spent is greater than 50% in coordination of care (as documented) at patient's floor/unit and/or counseling patient: Coding Level of Care Code 31778 Initial Inpt Care Lvl 3 Diagnoses Paraesophageal hernia K44.9 Esophagitis K20.90
--- NOTE | 2022-03-03 14:04 | CT Scan Report ---
CT OF THE CHEST WITHOUT IV CONTRAST CLINICAL HISTORY: chest/epigastric pain with paraesophageal hernia COMPARISON STUDY: CT of the abdomen and pelvis and chest radiograph performed earlier today. CT DOSE: 421.62 mGycm TECHNIQUE: Axial images of the chest were obtained without IV contrast. Images were reviewed in the axial, sagittal, and coronal planes. IV contrast was not administered for this examination. Automat ed exposure control was utilized for the study. A dose lowering technique was utilized adhering to t he principles of ALARA. FINDINGS: No enlarged axillary, mediastinal or hilar lymph nodes are present. There is moderate obdulia nary artery calcification. Size of the heart is at the upper limits of normal. There is no pericardia l effusion. Ascending aorta is dilated, measuring 4.6 cm in caliber. Note is made of a complex hiatal hernia. Specifically, the GE junction is below the diaphragm. The fundus and body of the stomach are below the diaphragm and moderately distended with air-fluid level. The gastric antrum is mildly dist ended and above the diaphragm. The stomach is inverted. No significant twisting is noted. Distal stom ach is decompressed. There is trace fluid and stranding within the hernia sac. A trace left pleural e ffusion is present. There is no pneumomediastinum. No pneumothorax is present. Subpleural reticulatio n within lungs is noted without honeycombing. There is no consolidation to suggest pneumonia. Gallsto sidra within the gallbladder are present. IMPRESSION: 1. Complex hiatal hernia which likely results in a partial gastric outlet obstruction. GE junction be low the diaphragm with fluid-filled distended gastric fundus and body below the diaphragm. Transition point at the diaphragmatic hiatus which likely results in the gastric outlet obstruction. Surgical c onsultation is recommended. 2. Dilated ascending aorta measuring 4.6 cm in caliber. 3. Evidence for interstitial lung disease, as described above. 4. Trace left pleural effusion. 5. Cholelithiasis. ACT 112: Negative or not required by law. Electronically signed by: Austin Carmichael M.D. 03/03/2022 2:03 PM
[2022-03-03] MEDS ORDERED: ACETAMINOPHEN 1,000 MG/100 ML VIAL IV PRN (16:12)
[2022-03-03] MEDS ORDERED: MoRPHine SULFATE 2 MG/ML CARP IV PRN (16:12)
[2022-03-03] MEDS ORDERED: ONDANSETRON INJ 2 MG/ML 2 ML VIAL IV PRN (16:12)
[2022-03-03] MEDS ORDERED: hydrALAZINE HCL 20 MG/ML VIAL IV PRN (16:12)
[2022-03-03] MEDS ORDERED: MoRPHine SULFATE 4 MG/ML 1 ML CARP\\VIAL IV PRN (16:12)
[2022-03-03] MEDS ORDERED: Patient's ALLERGY Info needs ENTERED SCH (16:30)
[2022-03-03] MEDS: LACTATED RINGER'S 1,000 ML IV SCH (17:22)
[2022-03-03] MEDS: PANTOprazole 40 MG in SYRINGE 0 ML IV SCH (21:44)
[2022-03-03] MEDS: FAMOTIDINE 20 MG in SYRINGE 3 ML IV SCH (21:44)
[2022-03-03] MEDS: HEPARIN SOD 5,000 UNIT/0.5 ML VIAL SQ SCH (21:44)
[2022-03-04] MEDS: LACTATED RINGER'S 1,000 ML IV SCH ×3 (00:27→17:34)
[2022-03-04] MEDS: PANTOprazole 40 MG in SYRINGE 0 ML IV SCH ×2 (08:41→20:36)
[2022-03-04] MEDS: FAMOTIDINE 20 MG in SYRINGE 3 ML IV SCH ×2 (08:41→20:35)
[2022-03-04] MEDS ORDERED: cefTRIAXone SODIUM 2,000 MG in DEXTROSE 5% 50 ML IV SCH (09:00)
[2022-03-04] MEDS: HEPARIN SOD 5,000 UNIT/0.5 ML VIAL SQ SCH ×2 (09:48→20:35)
--- NOTE | 2022-03-04 09:49 | Gastrointestinal Consultation ---
Date of Consultation March 04, 2022 Assessment & Plan (1) Epigastric abdominal pain: 86 year old male admitted with two episodes of epigastric abdominal pain, post- prandial, w/ radiation up his esophagus and into his left shoulder with associated nausea/vomiting. CT imaging concerning for a complex paraesophageal hernia w/ suspected partial gastric outlet obstruction w/ a transition point at the diaphragmatic hiatus Case was discussed with attending Will discuss with Dr. Milner in the event he is able to offer any treatment options Keep Mr. Johansen NPO Given the change in imaging status from CTAP to CT chest, pt will likely need a surgical consultation but will confirm this with Dr. England. Thank you for allowing us to participate in the care of this patient. Please call with any acute changes, questions or concerns. Please see addendum below with additional recommendation from my supervising physician. (2) Gastric outlet obstruction: History of Present Illness Reason for Consultation: abd pain Requesting Physician: Yanick Attending Physician: Dandre Herndon MD History of Present Illness 86 year old male with history of GERD and others below presented to the ED for evaluation of chest pain. GI was asked to evaluate given unremarkable cardiac workup. Pt was seen and evaluated, chart reviewed. He suggested this discomfort started about 1 week ago. This first occurred after eating breakfast at [employer]. Explained a dull pain from his epigastric region that radiated up his esophagus and to his left shoulder. This lasted about 1-2 hours. The followed day, after eating cereal the pain returned. This pain was more severe, pers istent and was present the following morning. Associated with nausea/vomiting, food/bile. Denies any black or bloody emesis. He does report GERD symptoms intermittent but denies dysphagia. No unintentional weight loss. He has never had an EGD/Colonoscopy before. CXR w/ hiatal hernia ABD US w/ gallstones, fatty liver, kidney stones CTAP w/ moderate sized paraesophageal hernia with narrowing of the stomach at the diaphragmatic hiatus, mild distention of the stomach proximal to the site of narrowing which may represent a degree of gastric outlet obstruction,wall thickening of the distal esophagus with adjacent stranding and trace free fluid. Chest CT w/ complex hiatal hernia which likely results in a partial gastric outlet obstruction, GE junction below the diaphragm with fluid-filled distended gastric fundus and body below the diaphragm, transition point at the diaphragmatic hiatus which likely results in the gastric outlet obstruction. Surgical consultation is recommended. This AM, he notes his pain is much improved, nearly resolved. He suggest he has mild discomfort which he rates around a 1-2/10. No further episodes of nausea/vomiting. Allergies Allergy/AdvReac Type Severity Reaction Status Date / Time No Known Allergies Allergy Unverified 03/03/22 17:19 Home Medications Medication Instructions Recorded Confirmed Type Fish Oil 2,000 Mg 2,000 mg PO BID 03/03/22 03/03/22 History ascorbic acid (vitamin C) 1,000 mg 1 g PO DAILY 03/03/22 03/03/22 History tablet (Vitamin C) aspirin 81 mg tablet,delayed 81 mg PO DAILY 03/03/22 03/03/22 History release cholecalciferol (vitamin D3) 25 0 mcg PO DAILY 03/03/22 03/03/22 History mcg (1,000 unit) tablet (Vitamin D3) vitamin B complex 1 tab PO DAILY 03/03/22 03/03/22 History zinc 50 mg capsule 50 mg PO DAILY 03/03/22 03/03/22 History Patient History Medical History History of kidney stones Surgical History (Updated 03/03/22 @ 13:12 by Funmilayo Rodriguez PA-C) History of appendectomy Hx of tonsillectomy Family History Father Prostate cancer Denies family history of Colorectal cancer Social History Smoking Status: Never smoker Do You Dip or Chew Tobacco: No; Hx Alcohol Use: No Hx Substance Use: No Preferred Language: Polish Communication Ability: Effective 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 Beliefs That Will Affect Care: None Current Living Situation: Spouse Current Living Situation Comment: Condo, first floor living Other Information That Helps Us Care for You: No Feels Safe at Home: Yes Safety Concerns: Feels Safe At This Time Assistive Devices: Glasses and Hearing Aid - Bilateral Review of Systems Review of Systems: All systems reviewed & are unremarkable except as noted in HPI & below Physical Exam Constitutional: WD/WN, vitals as above Respiratory: normal respiratory effort; no respiratory distress Auscultation: + diminished lung sounds Cardiovascular: Rate/Rhythm: regular rate and regular rhythm Gastrointestinal (Abdomen): Inspection/Auscultation: abdomen normal to inspection; abdomen not distended Percussion/Palpation: abdomen soft; abdomen nontender, no guarding and abdomen not rigid Skin: no rashes, warm and dry Results & Data ([facility]) Vital Signs (Past 12 Hours) Vital Signs Temp Pulse Resp BP BP Pulse Ox O2 Del Method 03/04/22 08:00 Room Air 03/04/22 08:23 36.7 C 66 18 122/75 94 Room Air 03/04/22 07:37 36.7 C 76 18 127/76 95 Room Air 03/04/22 01:44 82 149/90 H 03/03/22 22:15 Room Air 03/03/22 22:15 36.7 C 76 18 155/97 H 95 Room Air 03/03/22 21:45 83 16 126/74 94 Room Air Laboratory Results 03/03/22 03/03/22 03/03/22 Range/Units 11:42 09:10 09:10 Sodium 139 (136-145) mmol/L Potassium 3.8 (3.5-5.1) mmol/L Chloride 104 (98-107) mmol/L Carbon Dioxide 25 (21-32) mmol/L Anion Gap 10 (3-11) BUN 20 (6-23) mg/dl Creatinine 0.97 (0.6-1.4) mg/dl Est Cr Clr Drug Dosing 61.5 ml/min Est GFR ( Amer) 82.7 ml/min Est GFR (Non-Af Amer) 71.4 ml/min BUN/Creatinine Ratio 20.6 H (10-20) Glucose 150 H (70-99(Fasting)) mg/dl Calcium 9.5 (8.5-10.1) mg/dl Magnesium 2.0 (1.7-2.4) mg/dl Total Bilirubin 0.9 (0.2-1.0) mg/dl AST 16 (13-39) U/L ALT 13 (7-52) U/L Alkaline Phosphatase 57 (34-104) U/L Troponin I High Sens 20.3 H 20.5 H (0-20) pg/ml Total Protein 7.6 (6.0-8.3) gm/dl Albumin 4.0 (3.4-5.0) gm/dl Globulin 3.6 (2.5-4.0) gm/dl Albumin/Globulin Ratio 1.1 (0.9-2) Lipase 18 (11-82) U/L SARS-CoV-2, RNA, NAAT NEGATIVE (NEGATIVE)
--- NOTE | 2022-03-04 12:14 | Surgery Consultation ---
Date of Consultation March 04, 2022 Assessment & Plan (1) Paraesophageal hernia: This is an 86yM with no significant past medical history who presented to the [facility] ED on 03/03/[address] a/op and chest are revealing a complex hiatal hernia resulting in a partial gastric outlet obstruction. Patient has not had anything to eat since Wednesday evening which was cereal. He currently denies any recurrence of pain and is denying nausea/vomiting since being NPO. He reports + bowel function. My attendings reviewed patient's imaging and due to complexity of the hiatal hernia recommend patient be transferred to a tertiary center for surgical evaluation and management. Our GI department also evaluated the patient and have no plans for endoscopic procedures here. The plan of care was discussed with the hospitalists who are working on transfer. (2) Gastric outlet obstruction: History of Present Illness Attending Physician: Dandre Herndon MD History of Present Illness This is an 86yM with no significant past medical history who presented to the [facility] ED on 03/03/22 with chest discomfort. Patient states this began on Wednesday after eating, which he describes as a mild discomfort in his chest. It went away, but then returned in similar fashion on Wednesday after eating eggs. Unfortunately, the pain came back in worsened severity Wednesday evening which radiated into the back. He denies any nausea/vomiting associated with this. He presented to the ER for further evaluation. A CT a/p was obtained that revealed a moderate-sized paraesophageal hernia with narrowing of the stomach at the diaphragmatic hiatus. Mild distention of the stomach proximal to the site of narrowing may represent a degree of gastric outlet obstruction. Follow up with a dedicated CT chest confirmed a complex hiatal hernia which likely results in a partial gastric outlet obstruction. GE junction below the diaphragm with fluid- filled distended gastric fundus and body below the diaphragm. Transition point at the diaphragmatic hiatus which likely results in the gastric outlet obstruction. Patient states this is the first time this has ever happened to him. Denies any previous issues with eating/drinking. Prior surgical history on the abdomen includes an appendectomy and surgery for kidney stones. Allergies Allergy/AdvReac Type Severity Reaction Status Date / Time No Known Allergies Allergy Unverified 03/03/22 17:19 Home Medications Medication Instructions Recorded Confirmed Type Fish Oil 2,000 Mg 2,000 mg PO BID 03/03/22 03/03/22 History ascorbic acid (vitamin C) 1,000 mg 1 g PO DAILY 03/03/22 03/03/22 History tablet (Vitamin C) aspirin 81 mg tablet,delayed 81 mg PO DAILY 03/03/22 03/03/22 History release cholecalciferol (vitamin D3) 25 0 mcg PO DAILY 03/03/22 03/03/22 History mcg (1,000 unit) tablet (Vitamin D3) vitamin B complex 1 tab PO DAILY 03/03/22 03/03/22 History zinc 50 mg capsule 50 mg PO DAILY 03/03/22 03/03/22 History Patient History Medical History History of kidney stones Surgical History History of appendectomy Hx of tonsillectomy Family History Father Prostate cancer Denies family history of Colorectal cancer Social History Smoking Status: Never smoker Hx Alcohol Use: No Hx Substance Use: No Preferred Language: Amharic Communication Ability: Effective Archives Technician Required: No Beliefs That Will Affect Care: None Current Living Situation: Spouse Current Living Situation Comment: Condo, first floor living Feels Safe at Home: Yes Assistive Devices: Glasses and Hearing Aid - Bilateral Review of Systems Constitutional: no fever and no chills Cardiovascular: + chest pain Gastrointestinal: no abdominal pain, no nausea, no vomiting and no change in bowel habits Physical Exam Physical Exam: awake/alert Constitutional: WD/WN, vitals as above Respiratory: normal respiratory effort; no respiratory distress Gastrointestinal (Abdomen): Inspection/Auscultation: abdomen not distended Percussion/Palpation: abdomen soft; abdomen nontender Results & Data ([facility]) Vital Signs (Past 12 Hours) Vital Signs Temp Pulse Resp BP Pulse Ox O2 Del Method 03/04/22 08:00 Room Air 03/04/22 08:23 36.7 C 66 18 122/75 94 Room Air 03/04/22 07:37 36.7 C 76 18 127/76 95 Room Air 03/04/22 01:44 82 149/90 H Diagnostic Findings ABDOMEN AND PELVIS CT WITH IV CONTRAST CT DOSE: 526.02 mGy.cm HISTORY: Acute right upper quadrant abdominal pain epig pain TECHNIQUE: Multiaxial CT images of the abdomen and pelvis were performed following the IV administration of 90 cc of Optiray, A dose lowering technique was utilized adhering to the principles of ALARA. COMPARISON STUDY: Abdominal ultrasound 07/25/2007 FINDINGS: Mild subsegmental atelectasis/scarring of the lung bases. No pneumatosis or pneumoperitoneum. The spleen, pancreas and adrenal glands are unremarkable. The liver is within normal limits. Patency of the hepatic and portal veins. Cholelithiasis without CT evidence of acute cholecystitis. No biliary ductal dilation. Exophytic 1.6 cm cyst of the superior pole right kidney. 9 mm nonobstructing calculus of the superior pole right kidney. There are greater than 5 nonobstructing calculi of the left kidney measuring up to 7 mm. 10 mm hypodense focus suggestive of a cyst within the superior pole left kidney. There is a 1.2 x 0.8 x 1.8 cm calculus of the proximal left ureter at the level of L3 resulting in mild hydroureter without hydronephrosis. Unremarkable urinary bladder. Prostamegaly. Atherosclerosis of the aorta without aneurysm. There is no lymphadenopathy identified. Wall thickening of the distal esophagus with adjacent stranding and trace free fluid. There is a moderate sized paraesophageal hernia. There is focal narrowing of the gastric body at the level of the diaphragmatic hiatus. The stomach proximal to the site of narrowing is mildly dilated, air and fluid-filled. Duodenal diverticulum. No bowel obstruction or bowel wall thickening. Colonic diverticulosis. Mild to moderate colonic fecal retention. Appendectomy. Unremarkable soft tissues. Degenerative changes of the spine, pelvis and hips. IMPRESSION: 1. Moderate-sized paraesophageal hernia with narrowing of the stomach at the diaphragmatic hiatus. Mild distention of the stomach proximal to the site of narrowing may represent a degree of gastric outlet obstruction. 2. 1.8 cm calculus of the proximal left ureter without hydronephrosis. 3. Nonobstructing bilateral renal calculi. 4. Cholelithiasis. 5. Additional findings as above. ACT 112: Negative or not required by law. The above report was generated using voice recognition software. It may contain grammatical, syntax or spelling errors. Electronically signed by: Mu Cartwright M.D. 03/03/2022 11:[address] OF THE CHEST WITHOUT IV CONTRAST CLINICAL HISTORY: chest/epigastric pain with paraesophageal hernia COMPARISON STUDY: CT of the abdomen and pelvis and chest radiograph performed earlier today. CT DOSE: 421.62 mGycm TECHNIQUE: Axial images of the chest were obtained without IV contrast. Images were reviewed in the axial, sagittal, and coronal planes. IV contrast was not administered for this examination. Automated exposure control was utilized for the study. A dose lowering technique was utilized adhering to the principles of ALARA. FINDINGS: No enlarged axillary, mediastinal or hilar lymph nodes are present. There is moderate coronary artery calcification. Size of the heart is at the upper limits of normal. There is no pericardial effusion. Ascending aorta is dilated, measuring 4.6 cm in caliber. Note is made of a complex hiatal hernia. Specifically, the GE junction is below the diaphragm. The fundus and body of the stomach are below the diaphragm and moderately distended with air-fluid level. The gastric antrum is mildly distended and above the diaphragm. The stomach is inverted. No significant twisting is noted. Distal stomach is decompressed. There is trace fluid and stranding within the hernia sac. A trace left pleural effusion is present. There is no pneumomediastinum. No pneumothorax is present. Subpleural reticulation within lungs is noted without honeycombing. There is no consolidation to suggest pneumonia. Gallstones within the gallbladder are present. IMPRESSION: 1. Complex hiatal hernia which likely results in a partial gastric outlet obstruction. GE junction below the diaphragm with fluid-filled distended gastric fundus and body below the diaphragm. Transition point at the diaphragmatic hiatus which likely results in the gastric outlet obstruction. Surgical consultation is recommended. 2. Dilated ascending aorta measuring 4.6 cm in caliber. 3. Evidence for interstitial lung disease, as described above. 4. Trace left pleural effusion. 5. Cholelithiasis. ACT 112: Negative or not required by law. Electronically signed by: Austin Carmichael M.D. 03/03/2022 2:03 PM PG Care Time/CCT Total # of Minutes Spent Total Time Spent with Patient: Total time spent is greater than 50% in coordination of care (as documented) at patient's floor/unit and/or counseling patient: Coding Level of Care Code 82688 Initial Inpt Care Lvl 1 Diagnoses Paraesophageal hernia K44.9 Gastric outlet obstruction K31.1
--- NOTE | 2022-03-04 16:49 | Hospitalist Progress Note ---
Date of Service March 04, 2022 Assessment & Plan (1) Paraesophageal hernia: Plan: - Patient has a moderate paraesophageal hernia with distal esophagitis, causing partial gastric outlet obstruction. - N.p.o. and hold home meds. - Continue IV Pepcid and Protonix twice daily. - IV Rocephin daily. - GI consulted, no plans for procedures, advises surgical consult - Surgery team consulted, recommends due to complexity of hernia that pt be transferred to tertiary center - Case d/w [facility], pt accepted by [facility] Dr. Lion, awaiting bed availability - Currently without nausea/vomiting, IV Zofran prn ordered (2) Esophagitis: Plan: - As above. Plan Continue current treatment until bed becomes available at [facility]. Stable for S ground transport. Paperwork filled out and signed. Plan d/w Dr. Herndon. Admission and Anticipated Discharge Date Admission Date: March 03, 2022 Subjective Patient seen on daily rounds this morning. Pt hospitalized 03/03 with findings of paraesophageal hernia causing partial gastric outlet obstruction. Pt's symptoms included pain after eating on Wednesday and then again Wednesday morning after eating eggs. He was seen this AM by GI service who advised surgical consult. Pt reports that his chest pain/shoulder pain has resolved and denies n/v but has been NPO since admission. Surgery stated patient would require transfer to tertiary center due to the complexity of the hiatal hernia. Review of Systems Review of Systems: All systems reviewed and are unremarkable except as noted in HPI and below. Denies fever, chills, fatigue, headache, nasal congestion, sore throat, cough, chest pain, shortness of breath, palpitations, orthopnea, PND, abdominal pain, n/v/d, constipation, dysuria, hematuria, frequency, back pain, joint pain or swelling, easy bruising or bleeding, skin lesions or rashes. Physical Exam Physical Exam: GENERAL: 86 yo Well-developed, well-nourished WM. NAD. LUNGS: Clear to auscultation bilaterally. No W/R/R. CARDIOVASCULAR: Regular rate and rhythm. No M/G/R. No JVD. ABDOMEN: Soft, non-tender and non-distended. BS normoactive x 4 quad. EXTREMITIES: No edema. Non-tender. Peripheral pulses +2/4. NEUROLOGIC: A&O x3. PSYCHIATRIC: Cooperative. Appropriate mood and affect. SKIN: Warm, dry, intact. No rashes or lesions. Results & Data Results & Data ([facility]) Vital Signs (Past 12 Hours) Vital Signs Temp Pulse Resp BP Pulse Ox O2 Del Method 03/04/22 16:27 36.4 C L 71 22 122/75 95 Room Air 03/04/22 15:33 36.4 C L 72 18 130/85 92 Room Air 03/04/22 08:00 Room Air 03/04/22 08:23 36.7 C 66 18 122/75 94 Room Air 03/04/22 07:37 36.7 C 76 18 127/76 95 Room Air Laboratory Results no labs today PG Care Time/CCT Total # of Minutes Spent Total Time Spent with Patient: Total time spent is greater than 50% in coordination of care (as documented) at patient's floor/unit and/or counseling patient: Coding Level of Care Code 57919 Subseq Hosp Care Lvl 2 Diagnoses Paraesophageal hernia K44.9 Esophagitis K20.90
--- NOTE | 2022-03-04 21:31 | Communication Note ---
Date of Service: March 04, 2022 spoke to [facility] and Dr. Lion (MIS surgeon). asked for stat upper GI series to r/o volvulus; surgeon was considering if [facility] would be needed. unfortunately, upper GI series not able to be performed after hours at [facility]. spoke to CT; was able to reformat original images and produce coronal view. I spoke to radiology: original interpretation unchanged. possible partial incarceration. does not see volvulus. large proximal ureteral stone clinically, vitals stable, abd nontender. patient denies pain since yesterday. discussed w/ [facility] surgeon Dr. Lion. NG tube (especially if partial incarceration. ground transport when bed is available (none at the time)
--- NOTE | 2022-03-04 23:18 | Electrocardiogram Report ---
Test Reason : Blood Pressure : / mmHG Vent. Rate : 089 BPM Atrial Rate : 089 BPM P-R Int : 184 ms QRS Dur : 152 ms QT Int : 404 ms P-R-T Axes : 078 017 -12 degrees QTc Int : 491 ms Sinus rhythm with Premature atrial complexes Right bundle branch block Abnormal ECG When compared with ECG of 20-JAN-2014 12:59, No significant change was found Confirmed by Amol Kemp ([id number]) on 03/04/2022 11:18:24 PM Referred By: Confirmed By:Amol Kemp
[2022-03-05] MEDS: LACTATED RINGER'S 1,000 ML IV SCH ×3 (01:38→18:24)
[2022-03-05] MEDS: HEPARIN SOD 5,000 UNIT/0.5 ML VIAL SQ SCH (08:00)
[2022-03-05] MEDS: FAMOTIDINE 20 MG in SYRINGE 3 ML IV SCH ×2 (08:00→20:12)
[2022-03-05] MEDS: PANTOprazole 40 MG in SYRINGE 0 ML IV SCH ×2 (08:00→20:12)
--- NOTE | 2022-03-05 09:12 | Hospitalist Progress Note ---
Date of Service March 05, 2022 Assessment & Plan (1) Paraesophageal hernia: Plan: - Patient has a moderate paraesophageal hernia with distal esophagitis, causing partial gastric outlet obstruction. - N.p.o. and hold home meds. - Continue IV Pepcid and Protonix twice daily. - IV Rocephin daily. - GI consulted, no plans for procedures, advises surgical consult - Surgery team consulted, recommends due to complexity of hernia that pt be transferred to tertiary center - Case d/w [facility], pt accepted by [facility] Dr. Lion, awaiting bed availability - Currently without nausea/vomiting, IV Zofran prn ordered (2) Esophagitis: Plan: - As above. Plan Continue current treatment until bed becomes available at [facility]. Stable for BLS ground transport. Paperwork filled out and signed. Plan d/w Dr. Herndon. Admission and Anticipated Discharge Date Admission Date: March 03, 2022 Subjective Attending: Dr. Nicole Is an 86-year-old male that is pending transfer to [facility] for further management of a partial gastric outlet obstruction. Patient has a moderate paraesophageal hernia with distal esophagitis. Patient has been accepted to [facility] by CHUCKY Eid. We are currently awaiting a bed. At the request of Dr. Eid, an NG tube was placed last night although the patient had no symptoms and no nausea or vomiting. Dr. Sosa also requested a stat upper GI series with small bowel follow-through. This has been ordered this morning and is currently pending. Discussion with nursing staff indicates that patient is alert and oriented and ambulating the halls frequently. He is currently n.p.o. and has been since admission. Review of Systems Review of Systems: A total of 10 systems was reviewed and is negative other than as listed in the HPI Physical Exam Physical Exam: GENERAL : No acute distress EYES: No icterus, gaze conjugate NOSE: No evidence of epistaxis MOUTH: No lesions or candidiasis NECK: Supple LUNGS: CTA B/L, no wheezes, rales or rhonchi HEART: Regular, rate controlled ABDOMEN: Soft, NT, ND, BS Present EXTREMITIES: No LE edema, pedal pulses intact NEURO: A&OX3 Results & Data Results & Data ([facility]) Vital Signs (Past 12 Hours) Vital Signs Temp Pulse Resp BP Pulse Ox O2 Del Method 03/05/22 08:00 Room Air 03/05/22 07:34 36.6 C 87 17 142/73 H 95 Room Air 03/04/22 23:00 36.8 C 81 18 122/80 93 Room Air Critical Care Results & Data Vital Signs (Past 12 Hours) Vital Signs Temp Pulse Resp BP Pulse Ox O2 Del Method 03/05/22 08:00 Room Air 03/05/22 07:34 36.6 C 87 17 142/73 H 95 Room Air 03/04/22 23:00 36.8 C 81 18 122/80 93 Room Air Lab & Micro Results (Past 24 Hours) RBC 4.10 M/uL (4.63-6.08) L 03/05/22 WBC 8.14 K/ul (4.8-10.8) 03/05/22 Hgb 12.9 g/dl (14.0-18.0) L 03/05/22 Hct 37.9 % (40.1-51.0) L 03/05/22 MCV 92.4 fL (80.0-100.0) 03/05/22 MCH 31.5 pg (25.0-34.0) 03/05/22 MCHC 34.0 g/dL (32.0-36.0) 03/05/22 RDW Standard Deviation 47.3 fL (36.4-46.3) H 03/05/22 RDW Coefficient of Variation 14.0 % (11.5-14.5) 03/05/22 Plt Count 215 K/uL (130-400) 03/05/22 MPV 9.5 fL (9.4-12.4) 03/05/22 Na 138 mmol/L (136-145) 03/05/22 K 3.8 mmol/L (3.5-5.1) 03/05/22 Cl 105 mmol/L (98-107) 03/05/22 CO2 25 mmol/L (21-32) 03/05/22 Anion Gap 8 (3-11) 03/05/22 BUN 18 mg/dl (6-23) 03/05/22 Creatinine 0.86 mg/dl (0.6-1.4) 03/05/22 Estimated GFR ( Amer) 92.3 ml/min 10/27/22 Estimated GFR (Non-Af Amer) 79.6 ml/min 03/05/22 BUN/Creatinine Ratio 20.9 (10-20) H 03/05/22 Glu 83 mg/dl (70-99(Fasting)) 03/05/22 Ca 8.5 mg/dl (8.5-10.1) 03/05/22 Phosphorus Level 2.6 mg/dl (2.5-4.9) 03/05/22 Mg 1.8 mg/dl (1.7-2.4) 03/05/22 09:17 Calcium Level 8.5 mg/dl (8.5-10.1) 03/05/22 09:17 I & O Totals 24 Hours 03/04/22 03/05/22 03/06/22 06:59 06:59 06:59 Intake Total 1170 / 1170 3070.000 / 3070.000 Output Total 0 / 0 600 / 600 Balance 1170 / 1170 3070.000 / 3070.000 -600 / -600 Cumulative 03/03/22 08:38 thru 03/05/22 08:27 Intake Total 4240.000 Output Total 600 Balance 3640.000 RT Ventilator Mngmt (Last Documented) Ventilator Ordered Settings Respiratory Rate 17 03/05/22 07:34 Ventilator - PT Measurements Respiratory Rate 17 PG Care Time/CCT Total # of Minutes Spent Total Time Spent with Patient: Total time spent is greater than 50% in coordination of care (as documented) at patient's floor/unit and/or counseling patient: Coding Diagnoses Paraesophageal hernia K44.9 Esophagitis K20.90
[2022-03-05 09:29] LABS: Hematocrit (blood only) 37.9 % (40.1-51.0); Hemoglobin 12.9 g/dl (14.0-18.0); Mean Corpuscular Hemoglobin 31.5 pg (25.0-34.0); Mean Corpuscular Volume 92.4 fL (80.0-100.0); Mean Platelet Volume 9.5 fL (9.4-12.4); Platelet Count 215 K/uL (130-400); RDW Standard Deviation 47.3 fL (36.4-46.3); White Blood Count 8.14 K/ul (4.8-10.8)
--- NOTE | 2022-03-05 09:34 | XRay Report ---
XR chest 1V portable CLINICAL HISTORY: check ng tube placement TECHNIQUE: Single frontal radiograph of the chest was obtained. Comparison: Comparison is made to chest radiograph 03/03/2022 FINDINGS: Enteric tube tip and side-port lie below the diaphragm. Calcified aortic knob is seen. Reticular inte rstitial opacities are seen. There is a moderate hiatal hernia. IMPRESSION: Satisfactory appearance of enteric tube. ACT 112: Negative or not required by law. Electronically signed by: Rolando Cabrera M.D. 03/05/2022 9:32 AM
[2022-03-05 09:58] LABS: BUN Creatinine Ratio 20.9 (10-20); Calcium 8.5 mg/dl (8.5-10.1); Creatinine Clr Calc Pharmacy 63.9 ml/min; Est GFR (African American) 92.3 ml/min; Est GFR (Non-African American) 79.6 ml/min; Magnesium 1.8 mg/dl (1.7-2.4); Phosphorus 2.6 mg/dl (2.5-4.9); Potassium 3.8 mmol/L (3.5-5.1)
--- NOTE | 2022-03-05 12:05 | Fluoroscopy Report ---
SINGLE CONTRAST UPPER GI SERIES AND SMALL BOWEL FOLLOW-THROUGH CLINICAL HISTORY: Hiatal hernia. Clinical concern for volvulus. COMPARISON STUDY: Chest and abdominal CT scans dated 03/03/2022. TECHNIQUE: An abdominal measurement supervisor radiograph was performed. Approximately 600 cc of dilute Optiray 320 wa s injected through the enteric tube and a single contrast upper GI series was then performed. Spot im ages of the stomach were obtained in multiple obliquities. A small bowel follow-through was performed . Overhead radiographs and spot compression images were obtained. FINDINGS: The esophagus could not be assessed as the examination was performed through an enteric tube. No refl ux into the esophagus was observed during the examination. There is a moderate paraesophageal hiatal hernia. Contract refluxed from the distal stomach into the hiatal hernia. There is no opacification of the distal esophagus. There are zones of gastric volvulus . There is no evidence of mass lesion or ulcer on the acquired images. The duodenal bulb and sweep ar e normal as imaged. The abdominal measurement supervisor radiograph shows an enteric tube in place. There is a nonobstructive abdominal jannette wel gas pattern. Moderate fecal retention is noted in the right colon. A 2.3 cm calculus or cluster o f calculi project over the proximal ureter. Additional nonobstructing left renal stones measuring up to 6 mm. Calcified gallstones are seen in the right upper quadrant. The skeletal structures are osteo penic and appear intact. On the small bowel follow-through, there is normal transit time with contrast identified in the colon at 60 minutes. The small bowel mucosal pattern is normal. There is no evidence of stricture or mass. The distal/terminal ileum are normal in appearance on the spot compression views. Fluoroscopy time: 1.6 minutes Fluoroscopic images: 16 spot fluoroscopic images and 6 overhead radiographs IMPRESSION: 1. Moderate paraesophageal hiatal hernia. 2. There is no evidence of gastric volvulus. 3. Normal small bowel follow-through. 4. Left-sided nephrolithiasis with a 2.3 cm calculus/cluster of calculi in the left proximal ureter. ACT 112: Negative or not required by law. Electronically signed by: Nate Resendiz M.D. 03/05/2022 12:02 PM
--- NOTE | 2022-03-05 17:25 | Discharge Summary ---
Date of Service March 05, 2022 Admission HPI Per Admitting Provider Eran Johansen is a 86 y/o otherwise healthy male who is presenting today for chest/epigastric discomfort since last evening. He was eating a bowl of cereal and shortly after finishing it developed left chest pain and epigastric pain that radiated into his left shoulder. It was rated 8/10 when it started and has been stabbing in nature. He has been trying to walk around, drink water, massage his stomach to alleviate the pain with no success. He has not taken any medications at home to alleviate the pain. He woke up this morning with the pain still present, but now slightly better, rating it a 5 out of 10. He had a similar presentation Wednesday evening after eating, however the pain did eventually go away on its own after few hours so he did not seek attention. His only home medications include a baby aspirin and vitamins. Surgeries include appendectomy in his teens, tonsillectomy and kidney stone surgery 40+ years ago, no recent procedures. Denies any recent antibiotic use or choking/difficulty swallowing any of his pills. This is his first presentation with such symptoms. He does not have a history of GERD, has not had any difficulty swallowing or pain with eating. He has not been nauseous or vomiting. Bowel movements are typically every 2-3 days and normal for him, without blood or pain. He has lost 30 pounds over the last 3 years, reports this was intentional. CXR shows a hiatal hernia, CT A/P further reveals a moderate sized paraesophageal hernia with narrowing of the stomach at the diaphragmatic hiatus, as well as mild distention of the stomach proximal to the site of narrowing which may represent a degree of gastric outlet obstruction. There is wall thickening of the distal esophagus with adjacent stranding and trace free fluid. Spleen, pancreas, adrenal glands, liver are all unremarkable and within normal limits. There is evidence of cholelithiasis without evidence of acute cholecystitis or ductal dilation. He has several nonobstructing kidney stones and a cyst on each kidney, as well as a 1.2 x 0.8 x 1.8 cm calculus in proximal left ureter with mild hydroureter, no hydronephrosis. Gallbladder ultrasound was also obtained, which showed cholelithiasis without acute cholecystitis, as well as hepatic steatosis. Upon presentation to ED, he has been mildly hypertensive at times, otherwise vital signs are within normal limits and stable. Labs largely unremarkable, his WBC is mildly elevated 11.76, electrolytes are all within normal limits, without transaminitis. Lipase of 18. Initial troponin 20.5, repeat 2 hours later is 20.3. Admission Exam Per Admitting Provider Physical Exam: General: awake, alert, no apparent distress Head: Normocephalic, atraumatic ENT: PERRL, EOMI, no pharyngeal exudate, mucous membranes moist Chest: Clear to auscultation, on room air, no adventitious breath sounds Cardiac: Regular rate and rhythm, no murmur, no JVD, normal peripheral pulses, good capillary refill Abdominal: TTP at epigastrium; NABS x 4 quadrants, soft and otherwise nontender to palpation, no rebound, guarding or tenderness Extremities: Normal inspection, no peripheral edema or erythema, calfs nontender to palpation Psych: Normal mood and affect Neuro: AAO x 3, strength intact bilaterally and rated 5/5, no motor deficits, speech is clear, no peripheral sensory deficits Skin: no rash or erythema Principal Diagnosis Paraesophageal hernia and gastric outlet obstruction Discharge Exam GENERAL : No acute distress EYES: No icterus, gaze conjugate NOSE: No evidence of epistaxis MOUTH: No lesions or candidiasis NECK: Supple LUNGS: CTA B/L, no wheezes, rales or rhonchi HEART: Regular, rate controlled ABDOMEN: Soft, NT, ND, BS Present EXTREMITIES: No LE edema, pedal pulses intact NEURO: A&OX3 Discharge Data Allergies Allergy/AdvReac Type Severity Reaction Status Date / Time No Known Allergies Allergy Unverified 03/03/22 17:19 Consultations 03/03/22 12:29 ED Decision to Admit Stat 03/03/22 16:12 Consult Gastroenterology Routine 03/04/22 10:51 Consult General Surgery Routine 03/05/22 17:13 Burn CD for patient Stat Ordered Studies 03/03/22 09:05 US gallbladder Stat ULTRASOUND RIGHT UPPER QUADRANT ABDOMEN CLINICAL HISTORY: Right upper quadrant abdominal pain.. COMPARISON STUDY: Abdominal CT dated 03/03/2022. TECHNIQUE: Real-time, grayscale, and color flow sonography of the right upper quadrant of the abdomen was performed. Images are reviewed in the transverse and longitudinal planes. FINDINGS: Liver: The liver is normal in size and demonstrates heterogeneously increased echotexture indicating steatosis. There is no intrahepatic biliary ductal dilatation. The main portal vein is patent. Gallbladder: There are numerous shadowing calcified gallstones. There is no gallbladder wall thickening or pericholecystic fluid. A sonographic Sanders's sign is reportedly absent. The common bile duct measures up to 0.7 cm in diameter. Pancreas: Visualized portions of the pancreatic head are normal in appearance. The majority of the pancreas is not visualized due to overlying bowel gas. Right kidney: Survey images of the right kidney demonstrate normal size and echotexture. There is no hydronephrosis. A 1 cm nonobstructing calculus is seen in the right upper pole. Ascites: None. IMPRESSION: 1. Cholelithiasis without sonographic evidence of acute cholecystitis. 2. Hepatic steatosis. 3. Right-sided nephrolithiasis. ACT 112: Negative or not required by law. Electronically signed by: Nate Resendiz M.D. 03/03/2022 11:50 AM Dictated:03/03/22 1147 Transcribed: 03/03/22 1147 03/03/22 09:06 CT abd pelvis IV con only Stat ABDOMEN AND PELVIS CT WITH IV CONTRAST CT DOSE: 526.02 mGy.cm HISTORY: Acute right upper quadrant abdominal pain epig pain TECHNIQUE: Multiaxial CT images of the abdomen and pelvis were performed following the IV administration of 90 cc of Optiray, A dose lowering technique was utilized adhering to the principles of ALARA. COMPARISON STUDY: Abdominal ultrasound 07/25/2007 FINDINGS: Mild subsegmental atelectasis/scarring of the lung bases. No pneumatosis or pneumoperitoneum. The spleen, pancreas and adrenal glands are unremarkable. The liver is within normal limits. Patency of the hepatic and portal veins. Cholelithiasis without CT evidence of acute cholecystitis. No biliary ductal dilation. Exophytic 1.6 cm cyst of the superior pole right kidney. 9 mm nonobstructing calculus of the superior pole right kidney. There are greater than 5 nonobstructing calculi of the left kidney measuring up to 7 mm. 10 mm hypodense focus suggestive of a cyst within the superior pole left kidney. There is a 1.2 x 0.8 x 1.8 cm calculus of the proximal left ureter at the level of L3 resulting in mild hydroureter without hydronephrosis. Unremarkable urinary bladder. Prostamegaly. Atherosclerosis of the aorta without aneurysm. There is no lymp hadenopathy identified. Wall thickening of the distal esophagus with adjacent stranding and trace free fluid. There is a moderate sized paraesophageal hernia. There is focal narrowing of the gastric body at the level of the diaphragmatic hiatus. The stomach proximal to the site of narrowing is mildly dilated, air and fluid-filled. Duodenal diverticulum. No bowel obstruction or bowel wall thickening. Colonic diverticulosis. Mild to moderate colonic fecal retention. Appendectomy. Unremarkable soft tissues. Degenerative changes of the spine, pelvis and hips. IMPRESSION: 1. Moderate-sized paraesophageal hernia with narrowing of the stomach at the diaphragmatic hiatus. Mild distention of the stomach proximal to the site of narrowing may represent a degree of gastric outlet obstruction. 2. 1.8 cm calculus of the proximal left ureter without hydronephrosis. 3. Nonobstructing bilateral renal calculi. 4. Cholelithiasis. 5. Additional findings as above. ACT 112: Negative or not required by law. The above report was generated using voice recognition software. It may contain grammatical, syntax or spelling errors. Electronically signed by: uM Cartwright M.D. 03/03/2022 11:07 AM 03/03/22 13:08 CT chest without contrast [CT chest diagnostic wo con] Stat CT OF THE CHEST WITHOUT IV CONTRAST CLINICAL HISTORY: chest/epigastric pain with paraesophageal hernia COMPARISON STUDY: CT of the abdomen and pelvis and chest radiograph performed earlier today. CT DOSE: 421.62 mGycm TECHNIQUE: Axial images of the chest were obtained without IV contrast. Images were reviewed in the axial, sagittal, and coronal planes. IV contrast was not administered for this examination. Automated exposure control was utilized for the study. A dose lowering technique was utilized adhering to the principles of ALARA. FINDINGS: No enlarged axillary, mediastinal or hilar lymph nodes are present. There is moderate coronary artery calcification. Size of the heart is at the upper limits of normal. There is no pericardial effusion. Ascending aorta is dilated, measuring 4.6 cm in caliber. Note is made of a complex hiatal hernia. Specifically, the GE junction is below the diaphragm. The fundus and body of the stomach are below the diaphragm and moderately distended with air-fluid level. The gastric antrum is mildly distended and above the diaphragm. The stomach is inverted. No significant twisting is noted. Distal stomach is decompressed. There is trace fluid and stranding within the hernia sac. A trace left pleural effusion is present. There is no pneumomediastinum. No pneumothorax is present. Subpleural reticulation within lungs is noted without honeycombing. There is no consolidation to suggest pneumonia. Gallstones within the gallbladder are present. IMPRESSION: 1. Complex hiatal hernia which likely results in a partial gastric outlet obstruction. GE junction below the diaphragm with fluid-filled distended gastric fundus and body below the diaphragm. Transition point at the diaphragmatic hiatus which likely results in the gastric outlet obstruction. Surgical consultation is recommended. 2. Dilated ascending aorta measuring 4.6 cm in caliber. 3. Evidence for interstitial lung disease, as described above. 4. Trace left pleural effusion. 5. Cholelithiasis. ACT 112: Negative or not required by law. Electronically signed by: Austin Carmichael M.D. 03/03/2022 2:03 PM SINGLE CONTRAST UPPER GI SERIES AND SMALL BOWEL FOLLOW-THROUGH CLINICAL HISTORY: Hiatal hernia. Clinical concern for volvulus. COMPARISON STUDY: Chest and abdominal CT scans dated 03/03/2022. TECHNIQUE: An abdominal radiosonde operator radiograph was performed. Approximately 600 cc of dilute Optiray 320 was injected through the enteric tube and a single contrast upper GI series was then performed. Spot images of the stomach were obtained in multiple obliquities. A small bowel follow-through was performed. Overhead radiographs and spot compression images were obtained. FINDINGS: The esophagus could not be assessed as the examination was performed through an enteric tube. No reflux into the esophagus was observed during the examination. There is a moderate paraesophageal hiatal hernia. Contract refluxed from the distal stomach into the hiatal hernia. There is no opacification of the distal esophagus. There are zones of gastric volvulus. There is no evidence of mass lesion or ulcer on the acquired images. The duodenal bulb and sweep are normal as imaged. The abdominal radiosonde operator radiograph shows an enteric tube in place. There is a nonobstructive abdominal bowel gas pattern. Moderate fecal retention is noted in the right colon. A 2.3 cm calculus or cluster of calculi project over the proximal ureter. Additional nonobstructing left renal stones measuring up to 6 mm. Calcified gallstones are seen in the right upper quadrant. The skeletal structures are osteopenic and appear intact. On the small bowel follow-through, there is normal transit time with contrast identified in the colon at 60 minutes. The small bowel mucosal pattern is normal. There is no evidence of stricture or mass. The distal/terminal ileum are normal in appearance on the spot compression views. Fluoroscopy time: 1.6 minutes Fluoroscopic images: 16 spot fluoroscopic images and 6 overhead radiographs IMPRESSION: 1. Moderate paraesophageal hiatal hernia. 2. There is no evidence of gastric volvulus. 3. Normal small bowel follow-through. 4. Left-sided nephrolithiasis with a 2.3 cm calculus/cluster of calculi in the left proximal ureter. ACT 112: Negative or not required by law. Electronically signed by: Nate Resendiz M.D. 03/05/2022 12:02 PM Hospital Course (1) Paraesophageal hernia: - Patient has a moderate paraesophageal hernia with distal esophagitis, causing partial gastric outlet obstruction. - N.p.o. and hold home meds. - Continue IV Pepcid and Protonix twice daily. - IV Rocephin daily. - GI consulted, no plans for procedures, advises surgical consult - Surgery team consulted, recommends due to complexity of hernia that pt be transferred to tertiary center - Case d/w [facility], pt accepted by [facility], awaiting bed availability - Currently without nausea/vomiting, IV Zofran prn ordered -Upper GI series with small bowel follow-through was completed today and showed no gastric volvulus Patient is being transferred to [facility]. (2) Esophagitis: - As above. Plan Continue current treatment until bed becomes available at [facility]. Stable for BLS ground transport. Small bowel follow-through today with no evidence of gastric volvulus. Total Time Total Time Spent Total Time Spent (In Minutes): 45 Discharge Plan Discharge Items Patient Disposition: Transfer Acute Care Hospital Reason For Visit: PARAESOPHAGEAL HERNIA, GASTRIC OUTLET OBSTRUCTION Discharge Diagnosis: Paraesophageal hernia, gastric outlet obstruction Condition on Discharge: Fair Activity: As commented below Activity Comment: Per accepting facility Lifting: Wait until after follow-up appointment Bathing Comment: No bathing. May take a shower Exercise/Sports: Rest today Weightbearing: Full weightbearing Non-emergency contact: Primary Care Provider Call non-emergency contact if: you have any medication questions and your symptoms worsen Follow-up/Referrals: Michael Daley MD [Primary Care Provider] - 03/12/22 2:00 pm (APPT WITH Dianne WORKMAN PA-C) Diet: Nothing by Mouth Addtl Attending Provider Instructions: You are admitted for paraesophageal hernia and gastric outlet obstruction. A transfer was requested to [facility] and you were excepted. Being transferred there by ground today Your medical record from this admission to [facility] is being transferred with you. You should follow-up with your primary care physician on discharge from [facility] and follow their recommendations. Pending Studies at Discharge: No Stand-Alone Forms: My [facility] Skilled Items Patient informed of condition?: Yes DNR: No Discharge Level of Care: Other Communicable Disease: No Discharge Prognosis: Other Lines: Peripheral IV Urinary Catheter: No Medications and DC Order Prescriptions: Continued ascorbic acid (vitamin C) [Vitamin C] 1,000 mg Tablet 1 g PO DAILY aspirin 81 mg Tablet,Delayed Release (Dr/Ec) 81 mg PO DAILY vitamin B complex Tablet 1 tab PO DAILY zinc 50 mg Capsule 50 mg PO DAILY cholecalciferol (vitamin D3) [Vitamin D3] 25 mcg (1,000 unit) Tablet 0 mcg PO DAILY Fish Oil 2,000 Mg 2,000 mg PO BID Discharge Orders: Discharge Order (Routine); Ordered 03/05/22 Ordered By: Nate Kahn Admission Data Admit Date/Time: 03/03/22 13:17 Attending Provider: Gregory Nicole Admit Provider: Prashanth Terry Primary Care Provider: Michael Daley Other Providers: Prashanth Terry ; Jyoti Juarez ; Mc Powers Supervising Physician Co-Signing Physician Notes I personally examined the patient and verified all han points of history and exam, discussed case, and agree with decision making with Mariann Kahn PAC Feeling okay. Accepted at [facility] whenever I see him. No new complaints. Vitals noted, no distress. Breathing unlabored. NG tube in place. Paraesophageal herniafor transfer to tertiary. Coding Level of Care Code D/C DAY MANAGEMENT >30 MINS Diagnoses Paraesophageal hernia K44.9 Esophagitis K20.90 Time Spent (min) 45
== END 2022-03-05 20:15 | disposition short-term general hospital (02) | DRG 392 ==
LOC: ED 08:38 → EDINP 13:17 → SUATTDRO 13:17 → 3N 16:13

== ENCOUNTER 2022-05-03 07:31 | Inpatient (IN) ==
[2022-05-03] MEDS ORDERED: SODIUM CHLORIDE 0.9% 1000ML 500 ML IV ONE (08:07)
--- NOTE | 2022-05-03 08:11 | Emergency Department Note ---
History of Present Illness General Chief complaint: Rectal Bleed Stated complaint: BLEEDING FROM RECTUM Time Seen by Provider: 05/03/22 07:54 Source: patient Mode of arrival: ambulatory Limitations: no limitations History of Present Illness This patient is a an 86-year-old male who comes in complaining of rectal bleeding. It started overnight he describes it as bright red blood no trauma. No history of GI bleed he is on a baby aspirin but no other blood thinners he had 3 episodes the first 1 was more stool to the last 2 or more bright red with clots. He had a negative Cologuard in November he tells me. No chest pain shortness of breath lightheadedness or dizziness no abdominal pain he did have hiatal hernia surgery done in February but was been healing well from that that was done in [facility]. Home Medications Medication Instructions Recorded Confirmed Type Fish Oil 2,000 Mg 2,000 mg PO BID 03/03/22 04/14/22 History ascorbic acid (vitamin C) 1,000 mg 1 g PO DAILY 03/03/22 04/14/22 History tablet (Vitamin C) aspirin 81 mg tablet,delayed 81 mg PO DAILY 03/03/22 04/14/22 History release vitamin B complex 1 tab PO DAILY 03/03/22 04/14/22 History zinc 50 mg capsule 50 mg PO DAILY 03/03/22 04/14/22 History budesonide 32 mcg/actuation nasal 1 spray intranasal DAILY 03/16/22 04/14/22 History spray cholecalciferol (vitamin D3) 25 4,000 unit PO DAILY 03/16/22 04/14/22 History mcg (1,000 unit) tablet (Vitamin D3) metoprolol tartrate 25 mg tablet 25 mg PO BID #60 tabs 04/14/22 04/14/22 Rx Allergies Allergy/AdvReac Type Severity Reaction Status Date / Time No Known Drug Allergies Allergy Verified 04/14/22 09:10 Past Med/Surg History Medical History (Updated 05/03/22 @ 15:01 by Sarabjit Babb MD) Atrial fibrillation Benign prostatic hyperplasia Diabetes Esophagitis Gastric outlet obstruction Hiatal hernia History of kidney stones Hyperlipidemia Hypertension Paraesophageal hernia Precordial chest pain Surgical History (Updated 05/03/22 @ 10:57 by Scott Murray) History of appendectomy History of repair of hiatal hernia 02/2022- [facility] Hx of tonsillectomy Family History Father Prostate cancer Stroke Myocardial infarction Grandfather (Maternal) Myocardial infarction Grandfather (Paternal) Myocardial infarction Mother Myocardial infarction Denies family history of Ovarian cancer Breast cancer Lung cancer Colorectal cancer Social History (Updated 05/03/22 @ 10:58 by Scott Murray) Smoking Status: Never smoker Hx Alcohol Use: No Hx Substance Use: No Preferred Language: Palauan Communication Ability: Effective Visual Impairment: Limited Hearing Ability: Use of Hearing Aid Internal Communications Writer Required: No Beliefs That Will Affect Care: None marital status: Current Living Situation: Spouse Current Living Situation Comment: Condo, first floor living current occupational status: retired current occupation: retired from [employer] How many Children do You have: 2 Feels Safe at Home: Yes Childhood Exposure to Second-Hand Smoke: No caffeine: Yes Dental Care, Regularly: Yes Seatbelt Use: always Sunscreen Use: Yes Assistive Devices: None Review of Systems A total of 10 systems reviewed and were otherwise negative Physical Exam Vital Signs Vital Signs - 24 hr 05/03/22 07:33 05/03/22 08:30 05/03/22 08:30 Temperature 36.2 C L Temperature Source Temporal Artery Scan Pulse Rate 87 70 Respiratory Rate 16 17 Respiratory Depth Normal Blood Pressure 100/68 116/72 Blood Pressure Mean 78 86 Blood Pressure Position Sitting Pulse Oximetry 97 Oxygen Delivery Method Room Air Room Air Sepsis Recent Fever Within 48 Hours No Sepsis New/Unexplained Change in Mental Status No Sepsis Action Taken by Nursing No Action Required 05/03/22 09:00 05/03/22 09:30 05/03/22 10:00 Temperature Temperature Source Pulse Rate 67 67 Respiratory Rate 13 12 22 Respiratory Depth Blood Pressure Blood Pressure Mean Blood Pressure Position Pulse Oximetry Oxygen Delivery Method Sepsis Recent Fever Within 48 Hours Sepsis New/Unexplained Change in Mental Status Sepsis Action Taken by Nursing General: Well developed well nourished older male who in no acute distress, breathing comfortably on room air. Normal speech HEENT: Normal cephalic atraumatic. Pupils are equal round and reactive to light. Extraocular movements are intact. Oropharynx is pink with moist mucous membranes. No swelling of the mouth lips or tongue. Neck: Supple with a midline trachea. No meningeal signs or stiffness, no JVD or bruits. No Stridor. Chest: Clear to auscultation bilaterally. No wheezes or rhonchi. No increased work of breathing. Heart: Regular rate and rhythm without murmurs or gallops. Abdomen: Soft nontender, nondistended without rebound guarding or rigidity. Rectal: No external hemorrhoids or masses or source of bleeding seen. On internal exam he does have some BPH there is no masses seen stool was maroonish red and guaiac positive. No rectal tenderness Extremities: No cyanosis clubbing or edema. No calf tenderness or assymetry Spine/Back. Non tender to palpation. No CVA tenderness Skin: Good turgor without rashes. Neurologic exam: Cranial nerves two through 12 are intact. Motor and sensation are intact and symmetrical throughout. Course Administered Medications Potassium Chloride/Dextrose/Sod Cl (D5nss + 20meq Kcl) 20 meq in 1,000 mls @ 120 mls/hr IV .Q8H20M DOROTHY Stop: 06/02/22 13:54 Last Admin: 05/03/22 14:50 Dose: 120 mls/hr Documented By: LAURA Discontinued Medications Sodium Chloride (Nss 1000ml) 500 mls @ 999 mls/hr IV .Q31M ONE Stop: 05/03/22 08:37 Last Admin: 05/03/22 14:15 Dose: Not Given Documented By: LAURA Pantoprazole Sodium 40 mg/ (Syringe) 10 mls @ 5 mls/min IV NOW STA Stop: 05/03/22 11:11 Last Admin: 05/03/22 11:43 Dose: 5 mls/min Documented By: ZACKARY Medical Decision Making Differential Diagnosis GI bleed, anemia, colitis, infection, electrolyte or metabolic abnormality Medical Records Attestation: I reviewed the patient's medical records. Home Medications Current Medication List: was personally reviewed by me Laboratory Data Attestation: I reviewed the patient's lab results. Result diagrams: 05/03/22 14:45 05/03/22 08:45 Lab Results 05/03/22 05/03/22 05/03/22 Range/Units 08:20 08:45 08:45 WBC 9.30 (4.8-10.8) K/ul RBC 3.81 L (4.63-6.08) M/uL Hgb 11.8 L (14.0-18.0) g/dl Hct 34.7 L (40.1-51.0) % MCV 91.1 (80.0-100.0) fL MCH 31.0 (25.0-34.0) pg MCHC 34.0 (32.0-36.0) g/dL RDW Std Deviation 49.1 H (36.4-46.3) fL RDW Coeff of Hunter 14.8 H (11.5-14.5) % Plt Count 213 (130-400) K/uL MPV 9.7 (9.4-12.4) fL Immature Gran % (Auto) 0.5 % Neut % (Auto) 66.2 % Lymph % (Auto) 22.8 % [place]urel % (Auto) 7.2 % Eos % (Auto) 2.5 % Baso % (Auto) 0.8 % Neut # (Auto) 6.16 (1.4-6.5) K/uL Lymph # (Auto) 2.12 (1.2-3.4) K/uL La[place] # (Auto) 0.67 (0.24-0.82) K/uL Eos # (Auto) 0.23 (0-0.50) K/uL Baso # (Auto) 0.07 (0-0.2) K/uL Immature Gran # (Auto) 0.05 H (0.00-0.02) K/uL PT (9.0-12.0) Seconds INR (0.9-1.1) APTT (21.0-31.0) Seconds PTT Ratio Sodium (136-145) mmol/L Potassium (3.5-5.1) mmol/L Chloride (98-107) mmol/L Carbon Dioxide (21-32) mmol/L Anion Gap (3-11) BUN (6-23) mg/dl Creatinine (0.6-1.4) mg/dl Est Cr Clr Drug Dosing ml/min Est GFR ( Amer) ml/min Est GFR (Non-Af Amer) ml/min BUN/Creatinine Ratio (10-20) Glucose (70-99(Fasting)) mg/dl Lactate (0.4-2.0) mmol/L Calcium (8.5-10.1) mg/dl Total Bilirubin (0.2-1.0) mg/dl AST (13-39) U/L ALT (7-52) U/L Alkaline Phosphatase (34-104) U/L Total Protein (6.0-8.3) gm/dl Albumin (3.4-5.0) gm/dl Globulin (2.5-4.0) gm/dl Albumin/Globulin Ratio (0.9-2) Lipase (11-82) U/L SARS-CoV-2, RNA, NAAT NEGATIVE (NEGATIVE) Blood Type O Positive Antibody Screen NEGATIVE 05/03/22 05/03/22 05/03/22 Range/Units 08:45 08:45 08:45 WBC (4.8-10.8) K/ul RBC (4.63-6.08) M/uL Hgb (14.0-18.0) g/dl Hct (40.1-51.0) % MCV (80.0-100.0) fL MCH (25.0-34.0) pg MCHC (32.0-36.0) g/dL RDW Std Deviation (36.4-46.3) fL RDW Coeff of Hunter (11.5-14.5) % Plt Count (130-400) K/uL MPV (9.4-12.4) fL Immature Gran % (Auto) % Neut % (Auto) % Lymph % (Auto) % La[place] % (Auto) % Eos % (Auto) % Baso % (Auto) % Neut # (Auto) (1.4-6.5) K/uL Lymph # (Auto) (1.2-3.4) K/uL La[place] # (Auto) (0.24-0.82) K/uL Eos # (Auto) (0-0.50) K/uL Baso # (Auto) (0-0.2) K/uL Immature Gran # (Auto) (0.00-0.02) K/uL PT 10.9 (9.0-12.0) Seconds INR 1.0 (0.9-1.1) APTT 25.4 (21.0-31.0) Seconds PTT Ratio 0.9 Sodium 137 (136-145) mmol/L Potassium 4.4 (3.5-5.1) mmol/L Chloride 106 (98-107) mmol/L Carbon Dioxide 26 (21-32) mmol/L Anion Gap 5 (3-11) BUN 28 H (6-23) mg/dl Creatinine 0.83 (0.6-1.4) mg/dl Est Cr Clr Drug Dosing 66.3 ml/min Est GFR ( Amer) 93.6 ml/min Est GFR (Non-Af Amer) 80.8 ml/min BUN/Creatinine Ratio 33.7 H (10-20) Glucose 128 H (70-99(Fasting)) mg/dl Lactate 1.6 (0.4-2.0) mmol/L Calcium 8.6 (8.5-10.1) mg/dl Total Bilirubin 0.6 (0.2-1.0) mg/dl AST 14 (13-39) U/L ALT 9 (7-52) U/L Alkaline Phosphatase 50 (34-104) U/L Total Protein 6.3 (6.0-8.3) gm/dl Albumin 3.7 (3.4-5.0) gm/dl Globulin 2.6 (2.5-4.0) gm/dl Albumin/Globulin Ratio 1.4 (0.9-2) Lipase 28 (11-82) U/L SARS-CoV-2, RNA, NAAT (NEGATIVE) Blood Type Antibody Screen ECG Data Attestation: I personally reviewed and interpreted this ECG as follows: Indication: + weakness Rate (beats per minute): 75 Rhythm: + normal sinus ECG Intervals/blocks: + Mobitz Type II and + Right Bundle branch block ECG [place]: + Normal ECG ST segments: + Normal ST segments ECG Findings: no PACs or no PVCs Comparison ECG Date: from (03/03/22) Change: the following changes noted (Frontal branch block is old. His ectopy/Mobitz type II is new) MDM Narrative This patient comes in as described above he is having a GI bleed. His blood is maroon in his stool , it was guaiac positive. IV access was established was placed on a monitoring manager, he is asymptomatic otherwise. Multiple blood t esting was obtained and he was typed and screened in the event that he would need a blood transfusion or drop his hemoglobin. His COVID testing was negative. His EKG does show a right bundle branch block it also looks like he is a Mobitz type II as his PA interval gets more prolonged and then drops. I did have the charge nurse call IV team to have a second IV established in the event that he would need 1 unit blood transfusion. His hemoglobin is 11. He has no signal electrolyte or metabolic abnormalities. I have consulted Dr. Murray to see the patient in ER for further treatment and evaluation. Impression & Plan Acute GI bleeding, Mobitz (type) II atrioventricular block, Right bundle branch block, Lab test negative for COVID-19 virus Discharge Plan Visit Data Chief Complaint: Rectal Bleed Stated Complaint: BLEEDING FROM RECTUM ED Provider: Sarabjit Babb Discharge Problem: Acute GI bleeding, Mobitz (type) II atrioventricular block, Right bundle branch block, Lab test negative for COVID-19 virus Discharge Instructions Interventions: ED Discharge Assessment Last Done: 05/03/22 11:50
[2022-05-03 08:58] LABS: Basophils # (auto) 0.07 K/uL (0-0.2); Basophils % (auto) 0.8 %; Eosinophils # (auto) 0.23 K/uL (0-0.50); Eosinophils % (auto) 2.5 %; Hematocrit (blood only) 34.7 % (40.1-51.0); Hemoglobin 11.8 g/dl (14.0-18.0); Immature Granulocytes # (auto) 0.05 K/uL (0.00-0.02); Immature Granulocytes % (auto) 0.5 %; Lymphocytes # (auto) 2.12 K/uL (1.2-3.4); Lymphocytes % (auto) 22.8 %; Mean Corpuscular Volume 91.1 fL (80.0-100.0); Mean Platelet Volume 9.7 fL (9.4-12.4); Monocytes # (auto) 0.67 K/uL (0.24-0.82); Monocytes % (auto) 7.2 %; Neutrophils # (auto) 6.16 K/uL (1.4-6.5); Neutrophils % (auto) 66.2 %; Platelet Count 213 K/uL (130-400); RDW Coefficient of Variation 14.8 % (11.5-14.5); RDW Standard Deviation 49.1 fL (36.4-46.3); Red Blood Count 3.81 M/uL (4.63-6.08)
[2022-05-03 09:09] LABS: Partial Thromboplastin Ratio 0.9; Partial Thromboplastin Time 25.4 Seconds (21.0-31.0); Prothrombin Time 10.9 Seconds (9.0-12.0)
[2022-05-03 09:20] LABS: Albumin Globulin Ratio 1.4 (0.9-2); Albumin Level 3.7 gm/dl (3.4-5.0); BUN Creatinine Ratio 33.7 (10-20); Bilirubin,Total 0.6 mg/dl (0.2-1.0); Calcium 8.6 mg/dl (8.5-10.1); Creatinine Clr Calc Pharmacy 66.3 ml/min; Est GFR (African American) 93.6 ml/min; Est GFR (Non-African American) 80.8 ml/min; Globulin 2.6 gm/dl (2.5-4.0); Potassium 4.4 mmol/L (3.5-5.1); Total Protein 6.3 gm/dl (6.0-8.3)
--- NOTE | 2022-05-03 10:31 | History & Physical Report ---
Date of Service May 03, 2022 Assessment & Plan (1) Acute lower GI bleeding: Plan: Painless rectal bleeding. Diff Dx - diverticular vs internal hemorrhoid vs AVM vs mass vs other. CT abd/pelvis in 02/2022 showed diverticular disease of the colon but no other suspicious findings of the lower GI tract. He reports having had a colonoscopy at [facility] in the past but again I cannot find the report. He had a negative Cologard screening test this past summer. Doubt this is upper GI bleeding presenting as bright red bleeding per rectum. His BP and HR are normal, etc. Plan - NPO, IV fluids, IV protonix once daily, serial H/H's q6h, type/screen completed and blood consent obtained in the event of precipitous drop, and consult gastroenterology (Dr Viviana Aguilar). Hold aspirin. Place on telemetry. (2) Acute blood loss anemia: Plan: 2nd to #1 above. Serial H/H's q6h. (3) Prediabetes: Plan: Last Hba1c was 6.2% in March c/w prediabetes. Nothing to do at this time. f/u with PCP for such. (4) Hypertension: Plan: Patient denies h/o HTN. Metoprolol is being used for PAF. Fortunately BPs are stable at this time. (5) Hyperlipidemia: Plan: Hold fish oil, etc. (6) Atrial fibrillation: Plan: New diagnosis as of 02/2022. Saw Dr Blackman earlier this year at [facility] for such. Place on telemetry. Currently it appears he has NSR with ectopy. Keep Mag and K wnl. Recent outpatient stress echo showed EF 50-55%. (7) Benign prostatic hyperplasia: Plan: Not on meds for such at home. (8) History of hiatal hernia: Plan: s/p repair at [facility] 02/2022. no issues since then. (9) DVT prophylaxis: Plan: Chemical means contraindicated due to #1. SCDs at this time. Plan updated at bedside extensively History of Present Illness Chief Complaint: rectal bleeding Primary Care Provider: Michael Daley MD Mr Johansen is an 86yo male with history of a paraesophageal hernia in 02/2022 requiring surgical repair at [facility] in [place], newly diagnosed atrial fibrillation while in [place] for his surgery, BPH, hyperlipidemia, and ?HTN (patient denies this diagnosis) who presents with 4 episodes of painless rectal bleeding starting last PM about 1800. His last meal was about the same time. Most of the bleeding has been bright red blood but the last 2 stools had clots in them and were maroon in color. He denies any abdominal pain, nausea or emesis. He denies dizziness or lightheadedness. He has never had rectal bleeding before. He had a colonoscopy at [facility] in the past but I cannot find the report. He doesn't recall any specific findings from that endoscopy. CT abd/pelvis done at [facility] in February did show colonic diverticulosis. During my assessment he was resting comfortably. His last bloody bowel movement was this am prior to coming to the ER. Of note - the patient takes 81mg aspirin daily, but skipped it this AM. He does not take anticoagulation despite the recent h/o a.fib. Denies etoh use or NSAID use. Allergies Allergy/AdvReac Type Severity Reaction Status Date / Time No Known Drug Allergies Allergy Verified 04/14/22 09:10 Home Medications Medication Instructions Recorded Confirmed Type Fish Oil 2,000 Mg 2,000 mg PO BID 03/03/22 04/14/22 History ascorbic acid (vitamin C) 1,000 mg 1 g PO DAILY 03/03/22 04/14/22 History tablet (Vitamin C) aspirin 81 mg tablet,delayed 81 mg PO DAILY 03/03/22 04/14/22 History release vitamin B complex 1 tab PO DAILY 03/03/22 04/14/22 History zinc 50 mg capsule 50 mg PO DAILY 03/03/22 04/14/22 History budesonide 32 mcg/actuation nasal 1 spray intranasal DAILY 03/16/22 04/14/22 History spray cholecalciferol (vitamin D3) 25 4,000 unit PO DAILY 03/16/22 04/14/22 History mcg (1,000 unit) tablet (Vitamin D3) metoprolol tartrate 25 mg tablet 25 mg PO BID #60 tabs 04/14/22 04/14/22 Rx Past Med/Surg History Medical History (Updated 05/03/22 @ 15:01 by Sarabjit Babb MD) Atrial fibrillation Benign prostatic hyperplasia Diabetes Esophagitis Gastric outlet obstruction Hiatal hernia History of kidney stones Hyperlipidemia Hypertension Paraesophageal hernia Precordial chest pain Surgical History (Updated 05/03/22 @ 10:57 by Scott Murray) History of appendectomy History of repair of hiatal hernia 02/2022- [facility] Hx of tonsillectomy Family History Father Prostate cancer Stroke Myocardial infarction Grandfather (Maternal) Myocardial infarction Grandfather (Paternal) Myocardial infarction Mother Myocardial infarction Denies family history of Ovarian cancer Breast cancer Lung cancer Colorectal cancer Social History (Updated 05/03/22 @ 10:58 by Scott Murray) Smoking Status: Never smoker Hx Alcohol Use: No Hx Substance Use: No Preferred Language: Chinese Communication Ability: Effective Visual Impairment: Limited Hearing Ability: Use of Hearing Aid Card Scraper Required: No Beliefs That Will Affect Care: None marital status: Current Living Situation: Spouse Current Living Situation Comment: [place], first floor living current occupational status: retired current occupation: retired from [employer] How many Children do You have: 2 Other Information That Helps Us Care for You: No Feels Safe at Home: Yes Safety Concerns: Feels Safe At This Time Childhood Exposure to Second-Hand Smoke: No caffeine: Yes Dental Care, Regularly: Yes Seatbelt Use: always Sunscreen Use: Yes Assistive Devices: Glasses, Hearing Aid - Left and Hearing Aid - Right Review of Systems Review of Systems: gen - no fevers or chills; recent appetite has been wnl eyes - no visual change HENT - no dysphagia or sore throat CV - no chest pain or palpitations pulm - no cough, no dyspnea GI - no nausea, emesis, melena or pain - no LUTS musculo - denies joint pains endo - denies diabetes, but this diagnosis is on his profile skin - no rash neuro - no paresthesias psych - no depression Physical Exam Physical Exam: gen - NAD, awake, alert eyes - left pupil is larger than right pupil, both pupils reactive to light HENT - mouth with MMM neck - no JVD, supple, no masses heart - irregular, s1 s2, no murmur lungs - fine, dry rales bases; CTA b/l otherwise abd - soft NT ND BS+; LEE deferred (completed by ER attending - by report +gross blood but no hemorrhoids) ext - no edema, pulses 2+ b/l skin - no rash neuro - strength 5/5 x 4 exts; DTRs 2+ b/l psych - a/o x 3 lymph - no cervical lymph nodes present Results & Data Results & Data ([facility]) Vital Signs (Past 12 Hours) Vital Signs Temp Pulse Resp BP Pulse Ox O2 Del Method 05/03/22 10:00 22 05/03/22 09:30 67 12 05/03/22 09:00 67 13 05/03/22 08:30 70 17 116/72 05/03/22 08:30 Room Air 05/03/22 07:33 36.2 C L 87 16 100/68 97 Room Air Laboratory Results Laboratory Results - last 24 hr 05/03/22 05/03/22 05/03/22 08:20 08:45 08:45 WBC 9.30 RBC 3.81 L Hgb 11.8 L Hct 34.7 L MCV 91.1 MCH 31.0 MCHC 34.0 RDW Std Deviation 49.1 H RDW Coeff of Hunter 14.8 H Plt Count 213 MPV 9.7 Immature Gran % (Auto) 0.5 Neut % (Auto) 66.2 Lymph % (Auto) 22.8 [place] % (Auto) 7.2 Eos % (Auto) 2.5 Baso % (Auto) 0.8 Neut # (Auto) 6.16 Lymph # (Auto) 2.12 [place] # (Auto) 0.67 Eos # (Auto) 0.23 Baso # (Auto) 0.07 Immature Gran # (Auto) 0.05 H PT INR APTT PTT Ratio Sodium Potassium Chloride Carbon Dioxide Anion Gap BUN Creatinine Est Cr Clr Drug Dosing Est GFR ( Amer) Est GFR (Non-Af Amer) BUN/Creatinine Ratio Glucose Lactate Calcium Total Bilirubin AST ALT Alkaline Phosphatase Total Protein Albumin Globulin Albumin/Globulin Ratio Lipase SARS-CoV-2, RNA, NAAT NEGATIVE Blood Type O Positive Antibody Screen NEGATIVE 05/03/22 05/03/22 05/03/22 08:45 08:45 08:45 WBC RBC Hgb Hct MCV MCH MCHC RDW Std Deviation RDW Coeff of Hunter Plt Count MPV Immature Gran % (Auto) Neut % (Auto) Lymph % (Auto) [place] % (Auto) Eos % (Auto) Baso % (Auto) Neut # (Auto) Lymph # (Auto) [place] # (Auto) Eos # (Auto) Baso # (Auto) Immature Gran # (Auto) PT 10.9 INR 1.0 APTT 25.4 PTT Ratio 0.9 Sodium 137 Potassium 4.4 Chloride 106 Carbon Dioxide 26 Anion Gap 5 BUN 28 H Creatinine 0.83 Est Cr Clr Drug Dosing 66.3 Est GFR ( Amer) 93.6 Est GFR (Non-Af Amer) 80.8 BUN/Creatinine Ratio 33.7 H Glucose 128 H Lactate 1.6 Calcium 8.6 Total Bilirubin 0.6 AST 14 ALT 9 Alkaline Phosphatase 50 Total Protein 6.3 Albumin 3.7 Globulin 2.6 Albumin/Globulin Ratio 1.4 Lipase 28 SARS-CoV-2, RNA, NAAT Blood Type Antibody Screen Diagnostic Findings EKG - my reading - suspected NSR with PACs, RBBB Code Status & VTE Plan Code Status full PG Care Time/CCT Total # of Minutes Spent Total Time Spent with Patient: Total time spent is greater than 50% in coordination of care (as documented) at patient's floor/unit and/or counseling patient: Coding Level of Care Code 85268 Initial Inpt Care Lvl 2 Diagnoses Acute lower GI bleeding K92.2 Acute blood loss anemia D62 Prediabetes R73.03 Hypertension I10 Hyperlipidemia E78.5 Atrial fibrillation I48.91 Benign prostatic hyperplasia N40.0 History of hiatal hernia Z87.19 DVT prophylaxis Z29.9
[2022-05-03] MEDS ORDERED: PANTOprazole 40 MG in SYRINGE 0 ML IV STA (11:10)
[2022-05-03] MEDS ORDERED: ONDANSETRON INJ 2 MG/ML 2 ML VIAL IV PRN (13:55)
[2022-05-03] MEDS: D5NSS + 20MEQ KCL 20 MEQ/1,000 ML BAG IV SCH ×2 (14:50→22:23)
[2022-05-03 14:52] LABS: Hematocrit (blood only) 33.9 % (40.1-51.0); Hemoglobin 11.4 g/dl (14.0-18.0)
--- NOTE | 2022-05-03 14:52 | Electrocardiogram Report ---
Test Reason : Blood Pressure : / mmHG Vent. Rate : 071 BPM Atrial Rate : 071 BPM P-R Int : 200 ms QRS Dur : 142 ms QT Int : 424 ms P-R-T Axes : 034 -33 -02 degrees QTc Int : 460 ms Sinus rhythm with Premature atrial complexes in a pattern of bigeminy Left axis deviation Right bundle branch block Abnormal ECG When compared with ECG of 03-MAR-2022 08:47, No significant change was found Confirmed by Bobby Bryant ([id number]) on 05/03/2022 2:52:18 PM Referred By: REFERRED SELF Confirmed By:Bobby Bryant
--- NOTE | 2022-05-03 15:10 | Gastrointestinal Consultation ---
Date of Consultation May 03, 2022 History of Present Illness Attending Physician: Scott Murray History of Present Illness 86-year-old male s/p recent hosp for paraesophageal hernia repair who comes in complaining of rectal bleeding x 1 day. No abd pain. He reports cscopy in the past, but no documentation of this. VS unremarkable on admit and overnight. Hgb at baseline 12-14, now 11-12. BUN 28 on admit. No bleeding this am. PE: en - NAD, awake, alert eyes - left pupil is larger than right pupil, both pupils reactive to light HENT - mouth with MMM neck - no JVD, supple, no masses heart - irregular, s1 s2, no murmur lungs - fine, dry rales bases; CTA b/l otherwise abd - soft NT ND BS+ skin - no rash neuro - strength 5/5 x 4 exts; DTRs 2+ b/l psych - a/o x 3 lymph - no cervical lymph nodes present A/P: LGIB - Likely tic bleed, ddx = AVM, ischemic colitis. Clears. OK to resume ASA. Cscopy/EGD tomorrow. Allergies Allergy/AdvReac Type Severity Reaction Status Date / Time No Known Drug Allergies Allergy Verified 04/14/22 09:10 Home Medications Medication Instructions Recorded Confirmed Type Fish Oil 2,000 Mg 2,000 mg PO BID 03/03/22 04/14/22 History ascorbic acid (vitamin C) 1,000 mg 1 g PO DAILY 03/03/22 04/14/22 History tablet (Vitamin C) aspirin 81 mg tablet,delayed 81 mg PO DAILY 03/03/22 04/14/22 History release vitamin B complex 1 tab PO DAILY 03/03/22 04/14/22 History zinc 50 mg capsule 50 mg PO DAILY 03/03/22 04/14/22 History budesonide 32 mcg/actuation nasal 1 spray intranasal DAILY 03/16/22 04/14/22 History spray cholecalciferol (vitamin D3) 25 4,000 unit PO DAILY 03/16/22 04/14/22 History mcg (1,000 unit) tablet (Vitamin D3) metoprolol tartrate 25 mg tablet 25 mg PO BID #60 tabs 04/14/22 04/14/22 Rx Patient History Medical History (Updated 05/03/22 @ 15:01 by Sarabjit Babb MD) Atrial fibrillation Benign prostatic hyperplasia Diabetes Esophagitis Gastric outlet obstruction Hiatal hernia History of kidney stones Hyperlipidemia Hypertension Paraesophageal hernia Precordial chest pain Surgical History (Updated 05/03/22 @ 10:57 by Scott Murray) History of appendectomy History of repair of hiatal hernia 02/2022- Evita LEWIS Hx of tonsillectomy Family History Father Prostate cancer Stroke Myocardial infarction Grandfather (Maternal) Myocardial infarction Grandfather (Paternal) Myocardial infarction Mother Myocardial infarction Denies family history of Ovarian cancer Breast cancer Lung cancer Colorectal cancer Social History (Updated 05/03/22 @ 10:58 by Scott Murray) Smoking Status: Never smoker Hx Alcohol Use: No Hx Substance Use: No Preferred Language: Armenian Communication Ability: Effective Visual Impairment: Limited 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 Required: No Beliefs That Will Affect Care: None marital status: Current Living Situation: Spouse Current Living Situation Comment: [place], first floor living current occupational status: retired current occupation: retired from [employer] How many Children do You have: 2 Other Information That Helps Us Care for You: No Feels Safe at Home: Yes Safety Concerns: Feels Safe At This Time Childhood Exposure to Second-Hand Smoke: No caffeine: Yes Dental Care, Regularly: Yes Seatbelt Use: always Sunscreen Use: Yes Assistive Devices: Glasses, Hearing Aid - Left and Hearing Aid - Right Results & Data ([facility]) Vital Signs (Past 12 Hours) Vital Signs Temp Pulse Pulse Resp BP BP Pulse Ox 05/03/22 12:45 36.7 C 70 18 124/79 97 05/03/22 11:39 74 93 05/03/22 10:00 22 05/03/22 09:30 67 12 05/03/22 09:00 67 13 05/03/22 08:30 70 17 116/72 05/03/22 08:30 05/03/22 07:33 36.2 C L 87 16 100/68 97 O2 Del Method 05/03/22 12:45 Room Air 05/03/22 11:39 Room Air 05/03/22 10:00 05/03/22 09:30 05/03/22 09:00 05/03/22 08:30 05/03/22 08:30 Room Air 05/03/22 07:33 Room Air
[2022-05-03] MEDS ORDERED: METOCLOPRAMIDE HCL INJ 5 MG/ML 2 ML VIAL IV ONE (19:07)
[2022-05-03] MEDS ORDERED: LAVAGE SOLUTION 4000ML PO STA (19:35)
[2022-05-03 21:32] LABS: Hematocrit (blood only) 35.3 % (40.1-51.0); Hemoglobin 12.1 g/dl (14.0-18.0)
[2022-05-04 03:57] LABS: Hematocrit (blood only) 31.1 % (40.1-51.0); Hemoglobin 10.8 g/dl (14.0-18.0); Mean Corpuscular Hemoglobin 30.9 pg (25.0-34.0); Mean Corpuscular Hgb Conc 34.7 g/dL (32.0-36.0); Mean Corpuscular Volume 88.9 fL (80.0-100.0); Mean Platelet Volume 10.1 fL (9.4-12.4); Platelet Count 193 K/uL (130-400); RDW Coefficient of Variation 14.8 % (11.5-14.5); White Blood Count 9.57 K/ul (4.8-10.8)
[2022-05-04 05:06] LABS: BUN Creatinine Ratio 21.4 (10-20); Calcium 8.2 mg/dl (8.5-10.1); Creatinine Clr Calc Pharmacy 78.6 ml/min; Est GFR (African American) 100.4 ml/min; Est GFR (Non-African American) 86.7 ml/min; Potassium 4.1 mmol/L (3.5-5.1)
[2022-05-04] MEDS: D5NSS + 20MEQ KCL 20 MEQ/1,000 ML BAG IV SCH ×2 (07:13→20:45)
[2022-05-04] MEDS: FLUTICASONE PROPIONATE NA SPR 16 GM BTL SCH (08:06)
[2022-05-04] MEDS ORDERED: LIDOCAINE 2% MPF LOCAL 5 ML VIAL INFIL ONE (08:48)
[2022-05-04] MEDS ORDERED: PROPOFOL IV EMULSION 10 MG/ML 20 ML VIAL IV ONE ×2 (08:48→09:45)
--- NOTE | 2022-05-04 08:54 | Anesthesiology Consultation ---
Date of Service May 04, 2022 Assessment & Plan (1) Encounter for pre-operative examination: Chart Review Chart Review: entry level receptionist initiated History Surgery Operation Date: 05/04/22 16:30 Proposed Procedures p Colonoscopy Dr Aguilar - Viviana Aguilar MD Height/Weight Height: 5 ft 9 in Weight: 83 kg Allergies Allergy/AdvReac Type Severity Reaction Status Date / Time No Known Drug Allergies Allergy Verified 04/14/22 09:10 Medications Home Medications Medication Instructions Recorded Confirmed Last Taken Fish Oil 2,000 Mg 2,000 mg PO BID 03/03/22 04/14/22 Unknown ascorbic acid (vitamin C) 1,000 mg 1 g PO DAILY 03/03/22 04/14/22 Unknown tablet (Vitamin C) aspirin 81 mg tablet,delayed 81 mg PO DAILY 03/03/22 04/14/22 Unknown release vitamin B complex 1 tab PO DAILY 03/03/22 04/14/22 Unknown zinc 50 mg capsule 50 mg PO DAILY 03/03/22 04/14/22 Unknown budesonide 32 mcg/actuation nasal 1 spray intranasal DAILY 03/16/22 04/14/22 Unknown spray cholecalciferol (vitamin D3) 25 4,000 unit PO DAILY 03/16/22 04/14/22 Unknown mcg (1,000 unit) tablet (Vitamin D3) metoprolol tartrate 25 mg tablet 25 mg PO BID #60 tabs 04/14/22 04/14/22 Unknown Active Medications Generic Name Dose Route Start Last Admin Trade Name Freq PRN Reason Stop Dose Admin Fluticasone Propionate 1 sprays 05/04/22 09:00 05/04/22 08:06 Fluticasone Propionate Na Spr 16 Gm Btl NA 06/03/22 08:59 1 sprays DAILY DOROTHY Administration Potassium Chloride/Dextrose/Sod Cl 20 meq in 1,000 mls @ 75 mls/hr 05/03/22 13:55 05/04/22 07:13 D5nss + 20meq Kcl IV 06/02/22 13:54 75 mls/hr .[id number] DOROTHY Administration Past Medical History Medical History Atrial fibrillation Benign prostatic hyperplasia Diabetes Esophagitis Gastric outlet obstruction Hiatal hernia History of kidney stones Hyperlipidemia Hypertension Paraesophageal hernia Precordial chest pain Past Family History Family History Father Prostate cancer Stroke Myocardial infarction Grandfather (Maternal) Myocardial infarction Grandfather (Paternal) Myocardial infarction Mother Myocardial infarction Denies family history of Ovarian cancer Breast cancer Lung cancer Colorectal cancer Past Surgical History Surgical History History of appendectomy History of repair of hiatal hernia 02/2022- Evita LEWIS Hx of tonsillectomy Social History Smoking Status: Never smoker Hx Alcohol Use: No Hx Substance Use: No Physical Exam Vital Signs Last Vital Signs Temp 97.9 F 05/04/22 07:58 Pulse 69 05/04/22 07:58 Resp 16 05/04/22 07:58 BP 133/72 05/04/22 07:58 Pulse Ox 96 05/04/22 07:58 O2 Del Method 05/04/22 07:58 Testing Laboratory Results 05/04/22 03:13 05/04/22 03:13 PT 10.9 Seconds (9.0-12.0) 05/03/22 08:45 INR 1.0 (0.9-1.1) 05/03/22 08:45 APTT 25.4 Seconds (21.0-31.0) 05/03/22 08:45 Blood Type O Positive 05/03/22 08:45 Antibody Screen NEGATIVE 05/03/22 08:45 Electrocardiogram Date: 05/03/22 Sinus rhythm with Premature atrial complexes in a pattern of bigeminy Left axis deviation Right bundle branch block Abnormal ECG When compared with ECG of 03-MAR-2022 08:47 No significant change was found Confirmed by Bobby Bryant ([id number]) on 05/03/2022 2:52:18 PM
--- NOTE | 2022-05-04 08:59 | History & Physical Bridge Note ---
Date of Service May 04, 2022 History & Physical Bridge Note I have examined the patient, reviewed the History & Physical and in the interval since the performance of the History & Physical I have noted the following changes of clinical significance: no changes noted
--- NOTE | 2022-05-04 10:03 | Anesthesiology Progress Note ---
Date of Service May 04, 2022 Anesthesia Post Procedure Vital Signs Vital Signs: Temp Pulse Pulse Resp BP BP Pulse Ox 05/04/22 09:49 65 16 107/63 98 05/04/22 08:00 62 05/04/22 08:52 97.9 F 67 14 144/79 H 96 05/04/22 07:58 97.9 F 69 16 133/72 96 05/04/22 03:39 98.8 F 81 16 133/80 95 05/03/22 23:55 97.9 F 86 18 145/77 H 95 05/03/22 19:13 98.4 F 62 19 129/71 97 05/03/22 17:08 97.7 F 68 20 100/67 95 05/03/22 17:02 63 05/03/22 12:45 98.1 F 70 18 124/79 97 05/03/22 11:39 74 93 O2 Del Method 05/04/22 09:49 Room Air 05/04/22 08:00 05/04/22 08:52 Room Air 05/04/22 07:58 Room Air 05/04/22 03:39 Room Air 05/03/22 23:55 Room Air 05/03/22 19:13 Room Air 05/03/22 17:08 Room Air 05/03/22 17:02 05/03/22 12:45 Room Air 05/03/22 11:39 Room Air Transfer of Care Handoff Completed per policy Notes Mental Status: alert / awake / arousable and participated in evaluation Patient Amnestic to Procedure: Yes Nausea / Vomiting: adequately controlled Pain: adequately controlled Airway Patency, RR, SpO2: stable & adequate BP & HR: stable & adequate Hydration State: stable & adequate Anesthetic Complications: no major complications apparent and Pt Satisfied with anesthetic care
--- NOTE | 2022-05-04 10:12 | GI REPORT ---
Patient Name: Eran Johansen Procedure Date: 05/04/2022 9:00 AM Date of : 1935 Admit Type: Inpatient Age: 86 Gender: Male Attending MD: Viviana Aguilar MD, Procedure: Colonoscopy Providers: Viviana Aguilar MD Referring MD: Pillo Forman M.d. Indications: Evaluation of unexplained GI bleeding presenting with Hematochezia Medicines: See the Anesthesia note for documentation of the administered medications Complications: No immediate complications. Estimated Blood Loss: Estimated blood loss: none. Procedure: Pre-Anesthesia Assessment: - ASA Grade Assessment: II - A patient with mild systemic disease. After I obtained informed consent, the scope was passed under direct vision. Throughout the procedure, the patient's blood pressure, pulse, and oxygen saturations were monitored continuously. The Loaner was introduced through the anus and advanced to the terminal ileum. The colonoscopy was performed without difficulty. The patient tolerated the procedure well. The quality of the bowel preparation was good. Findings: The perianal and digital rectal examinations were normal. There was a moderate amount of dark red blood throughout the entire colon. There was bilious fluid in the cecum and in the ileum. Extensive lavage was performed -- there was no active bleeding in the colon, and no high risk stigmata were identified. Multiple small and large-mouthed diverticula were found in the sigmoid colon. 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 This was cauterized with APC at standard settings, and then clipped x 1. There was a 6 mm polyp in the ascending colon that was removed by cold snare, and then clipped x 2. The remainder of the colon was unremarkable. There was no source of active bleeding identified. Recommendation: Discharge pt to floor. Full liquids today. Follow hgb daily -- if hgb stable x 48 hours, then please discharge home. If pt passes BRBPR, then would recommend consideration for CTA. Abundio Doty MD 05/04/2022 10:12:23 AM This report has been signed electronically. Note Initiated On: 05/04/2022 9:00 AM Number of Addenda: 0 I attest to the content of the Intraoperative Record and orders documented therein, exceptions below {[id number]}
[2022-05-04] MEDS ORDERED: PANTOprazole 40 MG in SYRINGE 0 ML IV SCH (11:00)
[2022-05-04] MEDS ORDERED: METOPROLOL TARTRATE 1 MG/ML VIAL IV STA (19:05)
[2022-05-04] MEDS: METOPROLOL TARTRATE 25 MG TAB PO SCH (20:42)
--- NOTE | 2022-05-04 22:01 | Hospitalist Progress Note ---
Date of Service May 04, 2022 Assessment & Plan (1) Acute lower GI bleeding: Plan: Painless rectal bleeding. Diff Dx - diverticular vs internal hemorrhoid vs AVM vs mass vs other. CT abd/pelvis in 02/2022 showed diverticular disease of the colon but no other suspicious findings of the lower GI tract. He reports having had a colonoscopy at [facility] in the past but again I cannot find the report. He had a negative Cologard screening test this past summer. Doubt this is upper GI bleeding presenting as bright red bleeding per rectum. His BP and HR are normal, etc. Plan - Intial plan NPO, IV fluids, IV protonix once daily, serial H/H's q6h, type/screen completed and blood consent obtained in the event of precipitous drop, and consult gastroenterology (Dr Viviana Aguilar). Hold aspirin. Place on telemetry. On 05/04 Colonoscopy completed: The perianal and digital rectal examinations were normal. There was a moderate amount of dark red blood throughout the entire colon. There was bilious fluid in the cecum and in the ileum. Extensive lavage was performed -- there was no active bleeding in the colon, and no high risk stigmata were identified. Multiple small and large-mouthed diverticula were found in the sigmoid colon. 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 This was cauterized with APC at standard settings, and then clipped x 1. There was a 6 mm polyp in the ascending colon that was removed by cold snare, and then clipped x 2. The remainder of the colon was unremarkable. There was no source of active bleeding identified. Recommendation: Discharge pt to floor. Full liquids today. Follow hgb daily -- if hgb stable x 48 hours, then please discharge home. If pt passes BRBPR, then would recommend consideration for CTA. Tolerating full diet, will advance to low fiber. (2) Acute blood loss anemia: Plan: 2nd to #1 above. (3) Prediabetes: Plan: Last Hba1c was 6.2% in March c/w prediabetes. Nothing to do at this time. f/u with PCP for such. (4) Hypertension: Plan: Patient denies h/o HTN. Metoprolol is being used for PAF. Fortunately BPs are stable at this time. (5) Hyperlipidemia: Plan: Hold fish oil, etc. (6) Atrial fibrillation: Plan: New diagnosis as of 02/2022. Saw Dr Blackman earlier this year at [facility] for such. Place on telemetry. Currently it appears he has NSR with ectopy. Keep Mag and K wnl. Recent outpatient stress echo showed EF 50-55%. (7) Benign prostatic hyperplasia: Plan: Not on meds for such at home. (8) History of hiatal hernia: Plan: s/p repair at [facility] 02/[place]. no issues since then. (9) DVT prophylaxis: Plan: Chemical means contraindicated due to #1. SCDs at this time. Plan If hemoglobin is stable, would recommend discharge. Patient has followup with Cardio on Wednesday. Admission and Anticipated Discharge Date Admission Date: May 03, 2022 Subjective 86 yo male reports no more bright red blood bowel movements. He did state he saw old blood, with some clots. He reports before his BM would make the toilet all red, and now it is just blood tinged BM with some clots that are dark red. Patient is tolerating his diet. Review of Systems Review of Systems: All systems reviewed & are unremarkable except as noted in HPI & below Physical Exam Physical Exam: gen - NAD, awake, alert eyes - left pupil is larger than right pupil, both pupils reactive to light HENT - mouth with MMM neck - no JVD, supple, no masses heart - irregular, s1 s2, no murmur lungs - fine, dry rales bases; CTA b/l otherwise abd - soft NT ND BS+; ext - no edema, pulses 2+ b/l skin - no rash neuro - strength 5/5 x 4 exts; DTRs 2+ b/l psych - a/o x 3 lymph - no cervical lymph nodes present Results & Data Results & Data ([facility]) Vital Signs (Past 12 Hours) Vital Signs Temp Pulse Pulse Resp BP BP BP 05/04/22 19:23 82 116/72 05/04/22 19:16 36.6 C 82 16 113/70 05/04/22 16:22 36.6 C 83 18 115/77 05/04/22 15:55 69 05/04/22 13:55 05/04/22 11:37 36.6 C 60 18 136/77 05/04/22 10:30 36.5 C 60 16 145/69 H 05/04/22 10:19 60 16 135/85 05/04/22 10:04 64 16 137/74 Pulse Ox Pulse Ox O2 Del Method O2 Del Method 05/04/22 19:23 05/04/22 19:16 97 Room Air 05/04/22 16:22 97 Room Air 05/04/22 15:55 05/04/22 13:55 97 Room Air 05/04/22 11:37 98 Room Air 05/04/22 10:30 98 Room Air 05/04/22 10:19 98 Room Air 05/04/22 10:04 98 Room Air PG Care Time/CCT Total # of Minutes Spent Total Time Spent with Patient: Total time spent is greater than 50% in coordination of care (as documented) at patient's floor/unit and/or counseling patient: Coding Level of Care Code 33041 Subseq Hosp Care Lvl 2 Diagnoses Acute lower GI bleeding K92.2 Acute blood loss anemia D62 Prediabetes R73.03 Hypertension I10 Hyperlipidemia E78.5 Atrial fibrillation I48.91 Benign prostatic hyperplasia N40.0 History of hiatal hernia Z87.19 DVT prophylaxis Z29.9
[2022-05-05] MEDS: FLUTICASONE PROPIONATE NA SPR 16 GM BTL SCH (08:11)
[2022-05-05] MEDS: METOPROLOL TARTRATE 25 MG TAB PO SCH (08:11)
[2022-05-05 08:43] LABS: Hematocrit (blood only) 31.8 % (40.1-51.0); Hemoglobin 10.8 g/dl (14.0-18.0); Mean Corpuscular Hemoglobin 30.9 pg (25.0-34.0); Mean Corpuscular Volume 90.9 fL (80.0-100.0); Platelet Count 202 K/uL (130-400); RDW Coefficient of Variation 14.6 % (11.5-14.5); RDW Standard Deviation 48.6 fL (36.4-46.3); White Blood Count 9.13 K/ul (4.8-10.8)
[2022-05-05 09:07] LABS: BUN Creatinine Ratio 13.5 (10-20); Calcium 8.2 mg/dl (8.5-10.1); Creatinine Clr Calc Pharmacy 74.3 ml/min; Est GFR (African American) 98.2 ml/min; Est GFR (Non-African American) 84.7 ml/min
[2022-05-05] MEDS ORDERED: IRON SUCROSE 200 MG in 0.9 % SODIUM CHLORIDE 100 ML IV ONE (10:30)
--- NOTE | 2022-05-05 10:53 | Gastroenterology Progress Note ---
Date of Service May 05, 2022 Assessment & Plan Admission and Anticipated Discharge Date Admission Date: May 03, 2022 Subjective No further bleeding. Hgb stable. A/P: OK for d/c home. No need GI follow up. Please d/c on iron supplements for 3 mos + folic acid; should have f/u labs per PCP. Results & Data ([facility]) Vital Signs (Past 12 Hours) Vital Signs Temp Pulse Resp BP Pulse Ox O2 Del Method 05/05/22 07:21 36.8 C 71 17 126/72 96 Room Air 05/05/22 03:46 36.6 C 67 16 128/80 98 Room Air 05/04/22 23:28 36.6 C 64 20 108/69 96 Room Air
--- NOTE | 2022-05-05 12:55 | Discharge Summary ---
Date of Service May 05, 2022 Admission HPI Per Admitting Provider Mr Johansen is an 86yo male with history of a paraesophageal hernia in 02/2022 requiring surgical repair at [facility] in [place], newly diagnosed atrial fibrillation while in [place] for his surgery, BPH, hyperlipidemia, and ?HTN (patient denies this diagnosis) who presents with 4 episodes of painless rectal bleeding starting last PM about 1800. His last meal was about the same time. Most of the bleeding has been bright red blood but the last 2 stools had clots in them and were maroon in color. He denies any abdominal pain, nausea or emesis. He denies dizziness or lightheadedness. He has never had rectal bleeding before. He had a colonoscopy at [facility] in the past but I cannot find the report. He doesn't recall any specific findings from that endoscopy. CT abd/pelvis done at [facility] in February did show colonic diverticulosis. During my assessment he was resting comfortably. His last bloody bowel movement was this am prior to coming to the ER. Of note - the patient takes 81mg aspirin daily, but skipped it this AM. He does not take anticoagulation despite the recent h/o a.fib. Denies etoh use or NSAID use. Discharge Exam gen - NAD, awake, alert eyes - left pupil is larger than right pupil, both pupils reactive to light HENT - mouth with MMM neck - no JVD, supple, no masses heart - irregular, s1 s2, no murmur lungs - fine, dry rales bases; CTA b/l otherwise abd - soft NT ND BS+; LEE deferred (completed by ER attending - by report +gross blood but no hemorrhoids) ext - no edema, pulses 2+ b/l skin - no rash neuro - strength 5/5 x 4 exts; DTRs 2+ b/l psych - a/o x 3 lymph - no cervical lymph nodes present Discharge Data Allergies Allergy/AdvReac Type Severity Reaction Status Date / Time No Known Drug Allergies Allergy Verified 04/14/22 09:10 Consultations 05/03/22 09:36 ED Decision to Admit Stat 05/03/22 13:55 Consult Gastroenterology Routine Procedures Performed Operation Date: 05/04/22 16:30 Actual Procedures p Colonoscopy Polypectomy - Viviana Aguilar MD s Colonoscopy Hemostasis - Viviana Aguilar MD Hospital Course (1) Acute lower GI bleeding: Painless rectal bleeding. Diff Dx - diverticular vs internal hemorrhoid vs AVM vs mass vs other. CT abd/pelvis in 02/2022 showed diverticular disease of the colon but no other suspicious findings of the lower GI tract. He reports having had a colonoscopy at [facility] in the past but again I cannot find the report. He had a negative Cologard screening test this past summer. Doubt this is upper GI bleeding presenting as bright red bleeding per rectum. His BP and HR are normal, etc. Plan - NPO, IV fluids, IV protonix once daily, serial H/H's q6h, type/screen completed and blood consent obtained in the event of precipitous drop, and consult gastroenterology (Dr Viviana Aguilar). Hold aspirin. Place on telemetry. (2) Acute blood loss anemia: 2nd to #1 above. Serial H/H's q6h. (3) Prediabetes: Last Hba1c was 6.2% in March c/w prediabetes. Nothing to do at this time. f/u with PCP for such. (4) Hypertension: Patient denies h/o HTN. Metoprolol is being used for PAF. Fortunately BPs are stable at this time. (5) Hyperlipidemia: Hold fish oil, etc. (6) Atrial fibrillation: New diagnosis as of 02/2022. Saw Dr Blackman earlier this year at [facility] for such. Place on telemetry. Currently it appears he has NSR with ectopy. Keep Mag and K wnl. Recent outpatient stress echo showed EF 50-55%. (7) Benign prostatic hyperplasia: Not on meds for such at home. (8) History of hiatal hernia: s/p repair at [facility] 02/2022. no issues since then. (9) DVT prophylaxis: Chemical means contraindicated due to #1. SCDs at this time. Plan updated at bedside extensively Discharge Plan Discharge Items Patient Disposition: Home - Self-Care Reason For Visit: LOWER GI BLEEDING Discharge Diagnosis: Lower GI bleeding - resolved. Colonoscopy completed 05/04 - diverticulosis in the sigmoid colon found, 1 polyp removed, and a colonic "AVM" was treated. Exact cause of bleeding not certain - potentially due to the AVM, or possibly from your small intestine. Discharge hemoglobin was 10.8. Activity: As commented below Activity Comment: gradually increase your activities over the next 5-7 days Non-emergency contact: Primary Care Provider, Brand Lead and Bpm Analyst Call non-emergency contact if: you have any medication questions and your symptoms worsen Follow-up/Referrals: Xavi Blackman MD [Physician] - 05/06/22 (keep appointment as scheduled ) Viviana Aguilar MD [Physician] - (3-4 weeks for follow-up of GI bleeding ) Michael Daley MD [Primary Care Provider] - ([address] Daley ) Diet: Low Fiber Addtl Attending Provider Instructions: Mr Johansen, You were hospitalized for lower gastrointestinal (GI) bleeding. You were seen by Evita FRANCO and they performed a colonoscopy on 05/04 with findings as noted above in "discharge diagnoses." You had no further bleeding after your colonoscopy. Discharge hemoglobin level is 10.8. You received 1 dose of IV iron while here. Recommendations - 1. please discontinue your aspirin for now. 2. please avoid use of anti-inflammatory pills including motrin, ibuprofen, alleve, naprosyn, etc. TYLENOL IS OK to take for aches/pains; it does not cause bleeding. 3. please start an [id number] iron supplement. You can start this later this week - no keane since you received the IV iron. Take ferrous sulfate 325mg once daily. You can take it at the same time as your vitamin C tablet. Take the iron for 1-2 months or as directed by your family doctor. The iron tablet will cause your stools to look dark and may cause constipation. 4. follow-up with Dr Daley in about 5 days. You will need to have a repeat CBC blood count at that time. 5. follow-up with Dr Blackman 05/06 for your a.fib. You may have had 1 episode of controlled a.fib while here; otherwise you were in a normal rhythm. 6. see Evita FRANCO in 3-4 weeks, especially if you have any recurrent bleeding. 7. low fiber diet x 1 week - see handout. Return to [facility] if - * you begin to have bright red blood in your bowel movements again * you see tarry, black stools (this is different than a dark stool you may have with the iron tablets) * you have abdominal pain * you have dizziness with standing * any other concerns It was our pleasure to care for you! Happy new year, Dr Murray Pending Studies at Discharge: Yes Studies:: pathology from your polyp Stand-Alone Forms: My [facility], Smoking Cessation Medications and DC Order Prescriptions: New ferrous sulfate 325 mg (65 mg iron) tablet 325 mg PO DAILY Qty: 30 1RF Rx Instructions: take with your vitamin C supplement. Purchase [id number]. Continued budesonide 32 mcg/actuation spray,non-aerosol 1 spray intranasal DAILY Rx Instructions: administer into each nostril metoprolol tartrate 25 mg tablet 25 mg PO BID Qty: 60 2RF ascorbic acid (vitamin C) [Vitamin C] 1,000 mg Tablet 1 g PO DAILY vitamin B complex Tablet 1 tab PO DAILY zinc 50 mg Capsule 50 mg PO DAILY Fish Oil 2,000 Mg 2,000 mg PO BID cholecalciferol (vitamin D3) [Vitamin D3] 25 mcg (1,000 unit) tablet 4,000 unit PO DAILY Rx Instructions: takes 2 tablets daily Discontinued aspirin 81 mg Tablet,Delayed Release (Dr/Ec) 81 mg PO DAILY Discharge Orders: Discharge Order (Routine); Ordered 05/05/22 Ordered By: Scott Dobbins/Other Patient Handouts: Low-Fiber Diet, Colon and Rectal Polyps, ED Diverticulosis Admission Data Admit Date/Time: 05/03/22 10:38 Attending Provider: Scott Murray Admit Provider: Scott Murray Primary Care Provider: Michael Daley Other Providers: Scott Murray ; Viviana Aguilar Other Interventions: Discharge Summary Assessment (RN) Last Done: 05/04/22 10:16 Coding Diagnoses Acute lower GI bleeding K92.2 Acute blood loss anemia D62 Prediabetes R73.03 Hypertension I10 Hyperlipidemia E78.5 Atrial fibrillation I48.91 Benign prostatic hyperplasia N40.0 History of hiatal hernia Z87.19 DVT prophylaxis Z29.9
== END 2022-05-05 14:55 | disposition home or self-care (01) | DRG 345 ==
LOC: ED 07:31 → SUATTDRO 10:38 → 4W 10:38